=== PATIENT | female | born 1955 | race Caucasian/White ===

== ENCOUNTER 2018-06-09 15:12 | Inpatient (IN) | payer OTHER ==
[~2018-06-09] VITALS: Ht 170.2 cm; Wt 93.1 kg
[2018-06-09 15:22] VITALS: BP 132/70
[2018-06-09] MEDS ORDERED: LISINOPRIL10 MG PO (15:34)
[2018-06-09] MEDS ORDERED: SYNTHROID100 MC1 PO (15:34)
[2018-06-09] MEDS ORDERED: ZYRTEC10 M5 PO (15:35)
[2018-06-09] MEDS ORDERED: LOPRESSOR50 PO (15:35)
[2018-06-09] MEDS ORDERED: PEPCID20 MG PO (15:38)
[2018-06-09 16:18] LABS: ABSOLUTE BASOPHILS 0.1 thou/uL (0.0-0.2); ABSOLUTE EOSINOPHILS 0.2 thou/uL (0.0-0.7); ABSOLUTE LYMPHOCYTES 1.3 thou/uL (0.8-5.3); ABSOLUTE MONOCYTES 0.6 thou/uL (0.0-1.2); ABSOLUTE NEUTROPHILS 7.8 thou/uL (1.6-8.1); EOSINOPHILS 1.8 %; HEMATOCRIT 36.9 % (37.0-47.0); HEMOGLOBIN 12.9 gm/dL (12.0-15.0); LYMPHOCYTES 13.2 %; MCH 37.2 pg (26.0-34.0); MCHC 34.9 g/dL (28.0-37.0); MCV 106.6 fL (80.0-100.0); MONOCYTES 5.9 %; MPV 8.9 fl. (7.2-11.1); NUCLEATED RBCS 0 /100WBC; PLATELET COUNT* 126 thou/uL (150-400); POLYS 78.1 %; RBC 3.46 mil/uL (4.20-5.00); RDW-CV 15.9 % (10.5-14.5)
[2018-06-09 16:30] LABS: CALCIUM 8.1 mg/dL (8.5-10.1); CREATININE 1.7 mg/dL (0.6-1.3)
[2018-06-09 16:32] LABS: POTASSIUM 2.1 mmol/L (3.5-5.1)
[2018-06-09 16:39] LABS: ALBUMIN 2.4 g/dL (3.4-5.0); TOTAL BILIRUBIN 3.3 mg/dL (<0.1-1.0); TOTAL PROTEIN 7.5 g/dL (6.4-8.2); TROPONIN-I LEVEL 0.12 ng/mL (<0.06)
[2018-06-09 18:23] VITALS: BP 92/62
[2018-06-09 20:00] VITALS: BP 93/60
[2018-06-09 22:00] VITALS: BP 78/57
[2018-06-10] VITALS (12 sets, daily range): BP systolic 69–134; BP diastolic 38–72
[2018-06-10 00:53] LABS: URINE BILIRUBIN NEGATIVE (Negative); URINE BLOOD NEGATIVE (Negative); URINE CLARITY CLEAR; URINE COLOR YELLOW; URINE GLUCOSE-RANDOM NEGATIVE (Negative); URINE KETONES NEGATIVE (Negative); URINE LEUKOCYTES-REFLEX NEGATIVE (Negative); URINE NITRITE-REFLEX NEGATIVE (Negative); URINE PROTEIN NEGATIVE (Negative); URINE SPECIFIC GRAVITY <= 1.005 (1.005-1.030)
--- NOTE | 2018-06-10 05:58 | NUR ---
PATIENT PROGRESSING TOWARDS GOALS. ALERT, ANXIOUS, SR ON MONITOR ORIENT X4. DENIES PAIN. BP LOW BUT MAP <60. STILL SOUNDS COARSE IN LOWER LOBES NONE PRODUCTIVE COUGH ALL NIGHT. REPLACEING ELECYROLYTES PER PROTOCOL. HAS BEEN ABLE TO GET TO COMMODE WITH ASSIST TOLERATING WELL. HAS HAD TO INCONTINENT EPISODES. TROPONIN TRENDING DOWN. SKIN INTACT. PT GIVEN ATIVAN PER ANXIETY. BED TO LOWEST POSITION. CALL LIGHT IN PLACE. WILL CONTINUE TO MONITOR CLOSELY.
--- NOTE | 2018-06-10 10:30 | NUR ---
CM COULD NOT SEE PT.THIS AM, SHE WAS HAVE AN ECHO AT BEDSIDE. WILL SEE AT A LATER TIME.
[2018-06-10 10:58] LABS: ANION GAP 7 mmol/L (7-16); BUN 20 mg/dL (7-18); CALCIUM 7.9 mg/dL (8.5-10.1); CHLORIDE 91 mmol/L (98-107); CO2 25 mmol/L (21-32); CREATININE 1.4 mg/dL (0.6-1.3); GLUCOSE 109 mg/dL (70-99); PHOSPHORUS* 1.2 mg/dL (2.5-4.9); POTASSIUM 3.5 mmol/L (3.5-5.1); SODIUM 123 mmol/L (136-145); TROPONIN-I LEVEL <0.06 ng/mL (<0.06)
--- NOTE | 2018-06-10 15:33 | 2DMMODE ---
[place] [address] 2 D/M-MODE ECHOCARDIOGRAM Name: BECKY ALFARO Room: [address] IN [facility]#: [id number] Admission: 06/09/18 Attend Phys: Gurmeet Rojo, Discharge: Date of : 55 Date of Service: 06/10/18 1533 Report #: [id number] THIS REPORT FOR: //name// APPROVED REPORT Study performed: 06/10/2018 10:39:31 EXAM: Comprehensive 2D, Doppler, and color-flow Echocardiogram Patient Location: In-Patient Room #: [facility] Status: routine BSA: 2.04 HR: 95 bpm BP: 92/45 mmHg Rhythm: NSR Other Information Study Quality: Good Indications Dyspnea Elevated Troponin 2D Dimensions IVSd: 13.44 (7-11mm) LVOT Diam: 19.38 (18-24mm) LVDd: 40.13 mm PWd: 10.39 (7-11mm) Ascending Ao: 31.97 (22-36mm) LVDs: 24.14 (25-40mm) Aortic Root: 25.66 mm Volumes Left Atrial Volume (Systole) LA ESV Index: 33.10 mL/m2 Aortic Valve AoV Peak German.: 2.36 m/s AO Peak Gr.: 22.26 mmHg LVOT Max P.13 mmHg AO Mean Gr.: 12.51 mmHg LVOT Mean P.77 mmHg LVOT Max V: 1.74 m/s AO V2 VTI: 45.67 cm LVOT Mean V: 1.10 m/s KIM (VTI): 2.30 cm2 LVOT V1 VTI: 35.62 cm Mitral Valve E/A Ratio: 0.85 MV Decel. Time: 359.22 [place] [address] 2 D/M-MODE ECHOCARDIOGRAM Name: BECKY ALFARO Room: [address] IN ..#: [id number] Admission: 06/09/18 Attend Phys: Gurmeet Rojo, Discharge: Date of : 55 Date of Service: 06/10/18 1533 Report #: [id number] MV E Max German.: 1.42 m/s MV PHT: 104.17 ms MVA (PHT): 2.11 cm2 TDI E/Lateral E': 11.83 E/Medial E': 11.83 Medial E' German.: 0.12 m/s Lateral E' German.: 0.12 m/s Pulmonary Valve PV Peak German.: 1.19 m/s PV Peak Gr.: 5.71 mmHg Tricuspid Valve RAP Estimate: 5.00 mmHg TR Peak Gr.: 31.47 mmHg RVSP: 36.00 mmHg PA Pressure: 36.00 mmHg Left Ventricle The left ventricle is normal size. There is normal LV segmental wall motion. There is normal left ventricular wall thickness. Left ventricular systolic function is normal. The left ventricular ejection fraction is within the normal range. LVEF is 65-70%. Grade I - abnormal relaxation pattern. Right Ventricle The right ventricle is normal size. The right ventricular systolic function is normal. Atria The left atrium size is normal. The right atrium size is normal. Aortic Valve Mild aortic valve sclerosis. No aortic regurgitation is present. There is no aortic valvular stenosis. Mitral Valve There is mitral annular calcification. Trace mitral regurgitation. No evidence of mitral valve stenosis. Tricuspid Valve The tricuspid valve is normal in structure. Trace tricuspid regurgitation. Mild tricuspid regurgitation. Pulmonic Valve The pulmonary valve is normal in structure. There is [place] [address] 2 D/M-MODE ECHOCARDIOGRAM Name: NICK ALFARON Renay Room: [address]#: [id number] Admission: 06/09/18 Attend Phys: Gurmeet Rojo, Discharge: Date of : 55 Date of Service: 06/10/18 1533 Report #: [id number] valvular regurgitation. Great Vessels The aortic root is normal in size. IVC is not well visualized. Pericardium There is no pericardial effusion. <Conclusion> The left ventricle is normal size. There is normal left ventricular wall thickness. Left ventricular systolic function is normal. The left ventricular ejection fraction is within the normal range. LVEF is 65-70%. The right ventricle is normal size. The left atrium size is normal. Mild aortic valve sclerosis. No aortic regurgitation is present. There is no aortic valvular stenosis. There is mitral annular calcification. Trace mitral regurgitation. No evidence of mitral valve stenosis. The tricuspid valve is normal in structure. There is no pericardial effusion. There is normal LV segmental wall motion. <ELECTRONICALLY SIGNED> By: Jf Cali MD, FACC 06/10/18 1533 1533 1533 Jf Cali MD, FACC /INF
--- NOTE | 2018-06-10 16:08 | EKG ---
[place] [address] ELECTROCARDIOGRAM REPORT Name: BECKY ALFARO Room: [address] ADM IN .R.#: [id number] Admission: 06/09/18 Attend Phys: Gurmeet Rojo MD Discharge: Date of : 55 Report #: [id number] THIS REPORT FOR: //name// [facility] ED Test Date: 2018-06-09 Test Time: 15:26:32 Pat Name: BECKY ALFARO Department: Room: [facility] Gender: F Content Engineer: MS : 1955 Requested By: Jil Torres Order Number: [id number] MD: Jf Cali Measurements Intervals [place] Rate: 90 P: 60 WI: 165 QRS: 30 QRSD: 126 T: 132 QT: 367 QTc: 449 Interpretive Statements Sinus rhythm Nonspecific intraventricular conduction delay Probable anterior infarct, age indeterminate Baseline wander in lead(s) I,V1,V2,V6 No previous ECG available for comparison Electronically Signed On 06-10-2018 16:08:04 CDT by Jf Cali [email or web address] <ELECTRONICALLY SIGNED> By: Jf Cali MD, FAC 06/10/18 1608 1526 1526 Jf Cali MD, [facility] /EPI
--- NOTE | 2018-06-10 16:16 | EKG ---
[place] [address] ELECTROCARDIOGRAM REPORT Name: BECKY ALFARO Room: [address] IN .R.#: [id number] Admission: 06/09/18 Attend Phys: Gurmeet Rojo MD Discharge: Date of : 55 Report #: [id number] THIS REPORT FOR: //name// [facility] Test Date: 2018-06-10 Test Time: 07:48:49 Pat Name: BECKY ALFARO Department: Room: [facility] Gender: F Format Proofreader: LEO : 1955 Requested By: Gurmeet Rojo Order Number: [id number] OTTO: Jf Cali Measurements Intervals [place] Rate: 97 P: 32 IN: 144 QRS: 34 QRSD: 97 T: 71 QT: 387 QTc: 492 Interpretive Statements Sinus rhythm Low voltage, precordial leads Borderline prolonged QT interval No previous ECG available for comparison Electronically Signed On 06-10-2018 16:15:52 CDT by Jf Cali [email or web address] <ELECTRONICALLY SIGNED> By: Jf Cali MD, [facility] 06/10/18 1615 0748 Jf Cali MD, [facility] /EPI
--- NOTE | 2018-06-10 17:14 | NUR ---
NO CHANGE IN PATIENT ASSESSMENT. REFER TO [facility] ASSESSMENTS. PATIENT'S FAMILY CONCERNED THAT PATIENT IS TELLING NURSING STAFF THAT SHE DOES NOT DRINK THAT MUCH. PER THEM SHE DRINKS PURE WHISKEY WITH ICE, WHICH AMOUNTS TO ABOUT A PINT A DAY.
[2018-06-11] VITALS (7 sets, daily range): BP systolic 119–147; BP diastolic 65–76
[2018-06-11 04:34] LABS: HEMATOCRIT 34.4 % (37.0-47.0); HEMOGLOBIN 11.8 gm/dL (12.0-15.0); MCH 36.8 pg (26.0-34.0); MCHC 34.2 g/dL (28.0-37.0); MCV 107.6 fL (80.0-100.0); MPV 9.3 fl. (7.2-11.1); NUCLEATED RBCS 0 /100WBC; PLATELET COUNT* 118 thou/uL (150-400); RDW-CV 16.5 % (10.5-14.5); WBC 11.6 thou/uL (4.0-11.0)
[2018-06-11 04:55] LABS: ALBUMIN 2.3 g/dL (3.4-5.0); CALCIUM 7.7 mg/dL (8.5-10.1); CREATININE 1.2 mg/dL (0.6-1.3); MAGNESIUM 1.5 mg/dL (1.8-2.4); PHOSPHORUS* 1.7 mg/dL (2.5-4.9); POTASSIUM 3.6 mmol/L (3.5-5.1); TOTAL BILIRUBIN 5.1 mg/dL (<0.1-1.0); TOTAL PROTEIN 6.8 g/dL (6.4-8.2)
[2018-06-11 05:20] LABS: ABSOLUTE LYMPHOCYTES 0.5 thou/uL (0.8-5.3); ABSOLUTE MONOCYTES 0.8 thou/uL (0.0-1.2); ABSOLUTE NEUTROPHILS 10.3 thou/uL (1.6-8.1); ANISOCYTOSIS 1+; PLATELET ESTIMATE DECREASED; POIKILOCYTOSIS 1+
--- NOTE | 2018-06-11 06:50 | NUR ---
PATIENT DID NOT PROGRESS TOWARDS GOALS. CIWA SCORES INCREASED TO 9 D/T MODERATE HALLUCINATIONS, TREMORS, ANXIETY AND AGITATION. PT WENT IN BED 4 DIFFERENT TIMES WAS UNAWARE. GAVE A DOSE OF PO ATIVAN PT PRESISTED COUGHING AFTER. O2 DID NOT DROP BUT DOESNT SEEM LIKE PT IS ABLE TO CLEAR THROAT VERY WELL. DID NOT GIVE PO MEDICATION THIS A/M PT WAS VERY DROWSY UNABLE TO KEEP KEEP EYES OPEN FOR CONVERSATION. PT TOOK BOTH IV'S OUT LAST NIGHT AND PERSISTED TO TAKE OUT THE NEW 2 IV'S THAT WERE PLACED. PLACED A THIRD IV ON RIGHT FORARM CURRENTLY INTACT INFUSING MG+ AND NS. PT BED TO LOWEST POSITION, BED ALARM ON. CALL LIGHT IN PLACE. IS MS/TELE STATUS. WILL CONTINUE TO MONITOR.
--- NOTE | 2018-06-11 10:33 | CON ---
[facility] [address] [place] [address] CONSULTATION Name: BECKY ALFARO Room: [address] IN M.R.#: [id number] Admission: 06/09/18 Attend Phys: Gurmeet Rojo MD Discharge: Date of : 55 Report #: [id number] THIS REPORT FOR: //name// CC: [facility] physician/PCP Gurmeet Blum REQUESTING PHYSICIAN: Gurmeet Rojo M.D. REASON FOR CONSULTATION: Elevated D-dimer. DISCUSSION: The patient is a 62-year-old woman who was admitted after presenting to the Emergency Department yesterday. We do not have any old records on her at this facility. Unfortunately, she is an extremely poor historian. History was obtained for her as well as from the records, from the ED and the admitting physician who saw her yesterday. She notes she came to the Emergency Department because she was having swelling of her feet and ankles. She was having pain there as well. She initially denied shortness of breath to me. However, ED notes as well as the admitting doctor yesterday noted that she was more short of breath. She denied any chest pain or palpitations. Denies having documented history of any heart or lung problems. She notes she does periodically see Dr. Jess Blum. It is not clear how good she is having regular checkups. When she was seen in the ER, was seen by the nurse practitioner there. She did not have any blood gases done. On initial lab in the Emergency Department, her D-dimer was elevated. She was also noted to be hyponatremic, hypokalemic and had an elevation in her creatinine. Transaminases and liver function studies were also very abnormal. She had a chest x-ray done. No other imaging was done. When seen by her admitting physician, given the elevation in the D-dimer, a V/Q scan was ordered that has not yet been done. She denies any history of thromboembolic disease. Denies any history of any recent travel. Denies any injury. She currently does not work. She does have a history of tobacco abuse. She is extremely vague as to the amount that she smokes. She notes she has been "cutting down." Maybe about a half pack of cigarettes per day. Unable to quantitate the maximum she smoked in the past. She does drink alcohol on a regular basis. Again, however, she is vague as to the amount that she drinks. PAST MEDICAL HISTORY: We do have, she apparently does have a history of hypertension, hypothyroid and has had a prior appendectomy. HOME MEDICATIONS: Reportedly are lisinopril, levothyroxine, Zyrtec, metoprolol and Pepcid. It is not clear how [place] [address] CONSULTATION Name: DOMINICBECKY Room: [address] ADM IN [facility]#: [id number] Admission: 06/09/18 Attend Phys: Gurmeet Rojo MD Discharge: Date of : 55 Report #: [id number] SOCIAL HISTORY: Smoker and alcohol use as noted above. She states she is not working at this time. 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 REVIEW OF SYSTEMS: Challenging to obtain from the patient. Question the reliability of some of her answers. She is denying chest pain. Denies palpitations. Interestingly, she denied shortness of breath to me but has acknowledged that to the other healthcare professionals and she certainly does not dyspneic at the time I saw her. She denies having any wheezing until she came into the hospital. Denies any difficulty swallowing. Also negative for any recent fevers, chills or sweats. Denies any difficulty swallowing. No indigestion or heartburn. Denies any hematemesis or blood in her bowel movements as well as hemoptysis. Denies any history of TB or exposure to tuberculosis. No syncopal episodes. She denies any other periods of loss of consciousness. FAMILY HISTORY: She notes her multiple family members with heart disease. Denies any lung problems of thromboembolic disease in her family. PHYSICAL EXAMINATION: GENERAL: The patient is a mildly obese woman. She was seen in the ICU. VITAL SIGNS: She is on room air with O2 saturations running in the mid to high 90s. Respirations are mildly tachypneic, though not labored. There is some audible wheezing that is heard. HEENT: Head is normocephalic. Sclerae nonicteric. Mucous membranes are little dry. NECK: Large, supple without any definite adenopathy. Trachea is midline. No JVD is appreciated. HEART: Mildly tachycardic but regular. She has a grade 1/6 systolic murmur. No S3 is heard. LUNGS: Reveal breath sounds to be mildly diminished with a prolonged expiratory phase. She has scattered expiratory wheezes heard. Excursion is equal. No dullness to percussion. No subcutaneous emphysema is noted. ABDOMEN: Obese but soft, without appreciable hepatosplenomegaly. There is no guarding or rebound tenderness noted. EXTREMITIES: She has no clubbing. Lower extremities: She does have SCDs on. These were removed to examine her legs. She does have trace pretibial edema and a little bit more edema around her ankles. SKIN: Warm and dry. NEUROLOGICAL: She is alert, definitely oriented to self. Somewhat tangential in her replies. She is spontaneously moving all extremities. Do note overall her baseline hygiene appears to be poor. LABORATORY AND X-RAY FINDINGS: Portable chest film was done yesterday. Heart size appears normal. No infiltrates are noted. A questionable nodule seen in the right upper lobe area. We have no older [place] [address] CONSULTATION Name: BECKY ALFARO Room: [address] [place] [facility]#: [id number] Admission: 06/09/18 Attend Phys: Gurmeet Rojo MD Discharge: Date of : 55 Report #: [id number] her lab, sodium is 123, potassium 2.1 on admission and most recent one is 2.8 and bicarbonate 23. Admission creatinine was 1.7, down to 1.4 this morning and BUN is 21. Transaminases are elevated with an AST 245, ALT of 50, total bilirubin 3.3, alkaline phosphatase 197, magnesium 2.2 and albumin 2.2. Troponins on admission was 0.12, down to 0.09 this morning. TSH 9.89 and T4 1.22. Pro-BNP was 719. D-dimer elevated 11.24. No PT, PTT had been done. Alcohol level was less than. No drug screen was done. White blood cell count is 9400; hemoglobin 11.9; hematocrit 34.1; MCV 107 and platelets are 119,000. Prealbumin decreased at 8.1. UA was unremarkable. Also note since admission, she has been afebrile. Initially blood pressures were good, overall has been more hypotensive this morning. She is receiving some additional IV fluids. She is on room air with saturations in the 90s. IMPRESSION: 1. Active bronchospasm. With her smoking history, most likely has some underlying chronic obstructive pulmonary disease. Severity unknown. She is oxygenating adequately. 2. Elevated D-dimer. Significance not clear. Does have apparently multiple other medical problems. Does not appear to have any significant risk factors based on the information I am able to obtain from the patient in regards to thromboembolic disease. 3. Elevated liver function tests. Bilirubin is elevated as well as her transaminases. Question synthetic ability of the liver, do note albumin is low. Protime, INR pending. Suspect may have some underlying alcohol related liver disease. 4. Anemia, appears to have elevated MCV. Could be related to her alcohol use. 5. Hyponatremia. 6. History of hypothyroidism, no TSH is elevated. Question compliance with her thyroid replacement. 7. Lower extremity edema. Could be multifactorial. May have low oncotic pressure. Note, her albumin is low. Could also be related to liver disease. May have unrecognized sleep apnea. Also, some right heart failure. Do need to rule out deep venous thrombosis. 8. History of hypertension. Reportedly, on lisinopril at home. Now is currently hypotensive. The reason for this is not clear. RECOMMENDATIONS: 1. Agree with echo, which has been requested. 2. We will also need to get a V/Q scan. 3. Venous Dopplers of her lower extremities. 4. We will start DuoNeb every 4 hours. Next 24 hours of IV steroids. 5. Agree with fluid bolus. If she has not responded to that, we will need to start low dose Levophed. From my viewpoint, since she is oxygenating adequately, pushing additional fluids certainly reasonable. If she would have a PE, we want to have adequate filling pressures. [address] [address] CONSULTATION Name: BECKY ALFARO Room: [address] [facility] IN .R.#: [id number] Admission: 06/09/18 Attend Phys: Gurmeet Rojo MD Discharge: Date of : 55 Report #: [id number] 6. Long-term, need to make some significant lifestyle changes. Smoking and alcohol abstinence. <ELECTRONICALLY SIGNED> By: Christelle Borjas MD 06/11/18 1033 1102 [id number] Borjas MD /nt
--- NOTE | 2018-06-11 11:25 | NUR ---
PT. WITH CIWA OF 9. EITHER SLEEPING OR AWAKE WITH CONFUSION. DAUGHTER,KAITLIN AND KOBE AT BEDSIDE. CM AND DAUGHTERS WENT TO WAITING ROOM TO TALK. KAITLIN SAID HER MOM HAD BEEN EVICTED FROM HER APT.DUE TO NON PAYMENT OF RENT. THEY WERE IN THE PROCESS OF MOVING HER TO LIVE WITH KAITLIN. PT.HAD NOT FELT GOOD FOR ABOUT A WEEK OR TWO. SHE TOLD THEM SHE HAD THE FLU. ON DAY OF ADMISSION SHE WAS SWOLLEN ALL OVER-FACE,STOMACH,LEGS,FEET,ARMS. SHE HAS A HX OF DRINKING ON AND OFF THROUGH OUT THE YEARS. HAS TRIED TO QUIT SEVERAL TIMES. HAD AN ALCOHOLIC SEIZURE IN 2017. DAUGHTERS NOW THINK SHE DRINKS ALOT MORE THAN THEY THOUGHT. SHE HAS TROUBLE WITH ANXIETY AND DEPRESSION. IT HAD GOTTEN SO BAD SHE HAD NOT WANTED TO LEAVE HER APT. THEY THINK SHE IS FOLLOWED AT [facility] BUT HASN'T BEEN THERE FOR AWHILE. INFORMED THEM OF [employer]. THEY THINK SHE WOULD QUALIFY FOR MEDICAID. PT.DOES NOT HAVE A DPOA FAR THEY KNOW. CM FAXED FACE SHEET TO [employer]/[facility]. TOLD DAUGHTERS [employer] WILL NOT BE ABLE TO START APPLICATION UNTIL THEIR MOM IS ALERT AND ABLE TO TALK WITH [employer].
--- NOTE | 2018-06-11 18:27 | NUR ---
PATIENT HAS PROGRESSED WELL TOWARDS GOALS TODAY. PATIENT WAS CONFUSED AT BEGINNING OF SHIFT WITH MILD HALLUCINATIONS BUT SINCE HAS BECOME ORIENTED WITH NO HALLUCINATIONS. STILL INCONTINENT OF BOWEL AND BLADDER. EASILY REDIRECATABLE. CIWA IS A 7 CURRENTLY AND HAVE BEEN DECREASING THROUGHOUT THE DAY. PATIENT REMAINS M/S TELE STATUS. WILL MOVE IF AND WHEN A BED IS AVAILABLE. CALL LIGHT IN REACH, FALL PRECAUTIONS IN PLACE, DIRECTOR IN PLACE.
[2018-06-12 02:00] VITALS: BP 113/70
[2018-06-12 04:16] VITALS: BP 137/85
[2018-06-12 05:01] LABS: ABSOLUTE LYMPHOCYTES 0.5 thou/uL (0.8-5.3); ABSOLUTE MONOCYTES 0.7 thou/uL (0.0-1.2); BASOPHILS 0.2 %; HEMATOCRIT 35.1 % (37.0-47.0); LYMPHOCYTES 3.7 %; MCH 36.9 pg (26.0-34.0); MCHC 34.1 g/dL (28.0-37.0); MCV 108.3 fL (80.0-100.0); MONOCYTES 5.7 %; MPV 8.7 fl. (7.2-11.1); NUCLEATED RBCS 0 /100WBC; PLATELET COUNT* 124 thou/uL (150-400); POLYS 90.4 %; RBC 3.24 mil/uL (4.20-5.00); RDW-CV 17.1 % (10.5-14.5); WBC 12.2 thou/uL (4.0-11.0)
[2018-06-12 05:02] LABS: ALBUMIN 2.2 g/dL (3.4-5.0); CALCIUM 7.2 mg/dL (8.5-10.1); MAGNESIUM 1.5 mg/dL (1.8-2.4); PHOSPHORUS* 1.8 mg/dL (2.5-4.9); POTASSIUM 3.4 mmol/L (3.5-5.1); TOTAL BILIRUBIN 5.7 mg/dL (<0.1-1.0); TOTAL PROTEIN 6.9 g/dL (6.4-8.2)
--- NOTE | 2018-06-12 05:19 | NUR ---
ASSUMED CARE OF PT AT 1900 PT ALERT AND ORIENTED X 4 VSS, PT VISIBLY SOA AND WHEEZING O2 SAT MID 90'S ON ROOM AIR. PTS CIWAS 5-8 WITH DOES OF ATIVAN GIVEN AT 0011. THNPT SLEPT THE REST OF THE NIGHT. PT INCONTINENT MULTIPLE TIMES WHILE ASLEEP BUT CONTINENT WHILE AWAKE. PT ST ON THE MONITOR WILL CONTINUE PLAN OF CARE.
[2018-06-12 05:36] LABS: INR 1.6; PROTIME 16.1 Seconds (9.20-11.50)
[2018-06-12 08:00] VITALS: BP 114/54
--- NOTE | 2018-06-12 11:00 | NUR ---
SPOKE WITH PT AND DTRS IN THE ROOM. PT IS ALERT AND ORIENTED, NO LONGER HAVING HALLUCINATIONS. PT NOW MS TELE STATUS PER NURSING. PT AND DTRS HAVE NO QUESTIONS ABOUT PLAN OF CARE. CASE MGT WILL CONTINUE TO FOLLOW.
[2018-06-12 11:03] LABS: MAGNESIUM 1.8 mg/dL (1.8-2.4); PHOSPHORUS* 1.6 mg/dL (2.5-4.9); POTASSIUM 3.8 mmol/L (3.5-5.1)
[2018-06-12 12:12] VITALS: BP 136/53
--- NOTE | 2018-06-12 16:43 | NUR ---
REPORT GIVEN TO TAYLOR THACKER. ALL QUESTIONS ANSWERED. PATIENT TRANSFERED TO ROOM 312 WITH TECH BY WHEELCHAIR. ALL BELONGINGS SENT WITH PATIENT. AJ WAS TAKEN HOME WITH DAUGHTERS THIS AFTERNOON BECAUSE PATIENT WAS CAUGHT TRYING TO SMOKE AT THE BEDSIDE. CHART AND MEDICATIONS SENT WITH PATIENT WELL.
--- NOTE | 2018-06-12 17:10 | NUR ---
ASSUMED CARE OF PATIENT AT THIS TIME. REPORT RECEIVED FROM WINSTON THACKER. PATIENT SETTLED TO ROOM. PATIENT DENIES ANY PAIN. PATIENT IS ON ROOM AIR WITH SATS 94%, PATIENT DOES HAVE EXPIRATORY WHEEZES. PATIENT DENIES NAY NEEDS AT THIS TIME. CALL LIGHT WITHIN REACH. BED ALARM ON. WILL CONTINUE TO MONITOR.
[2018-06-13] VITALS: BP 120/70
[2018-06-13 04:00] VITALS: BP 124/62
[2018-06-13 07:55] VITALS: BP 118/55
[2018-06-13 09:23] LABS: MAGNESIUM 1.5 mg/dL (1.8-2.4); PHOSPHORUS* 2.1 mg/dL (2.5-4.9); POTASSIUM 4.2 mmol/L (3.5-5.1)
--- NOTE | 2018-06-13 10:59 | NUR ---
JOHAN met with pt to provide resources and referral to [facility] for ETOH abuse recovery programs. Pt dtr had stepped out of the room for now but SW discussed options and pt was not sure since she said that she recently moved with her dtr to [place] from [place]. JOHAN called pt dtr Nathalie and discussed resources available and Nathalie plans to call JOHAN back as well and possibly meet in person to continue to find treatment options to assist with further recovery for pt. SW to continue to follow.
[2018-06-13 12:45] VITALS: BP 124/68
[2018-06-13 16:20] VITALS: BP 152/70
--- NOTE | 2018-06-13 18:30 | NUR ---
PATIENT RESTING IN BED. PATIENT HAS BEEN UP IN CHAIR THIS AFTERNOON. PATIENT WORKED WITH OT/PT TODAY. PATIENT IS MORE ORIENTED TODAY WITH SOME FORGETFULNESS. PATIENT HAS CONTINUED TREMORS. PATIENT HAS [employer] APPETITE. PATIENT DENIES ANY NEEDS AT THIS TIME. CALL LIGHT WITHIN REACH. WILL CONTIUE TO MONITOR.
[2018-06-13 20:10] VITALS: BP 147/73
[2018-06-14] VITALS: BP 122/75
[2018-06-14 04:00] VITALS: BP 137/67
[2018-06-14 04:59] LABS: ALBUMIN 2.2 g/dL (3.4-5.0); MAGNESIUM 1.4 mg/dL (1.8-2.4); PHOSPHORUS* 1.6 mg/dL (2.5-4.9); POTASSIUM 4.4 mmol/L (3.5-5.1); TOTAL BILIRUBIN 6.7 mg/dL (<0.1-1.0); TOTAL PROTEIN 6.8 g/dL (6.4-8.2)
--- NOTE | 2018-06-14 05:46 | NUR ---
PT RESTED WELL , TREMORS REMAINS CIWA 4, PT INCONTINENTOF STOOL AND URINE THROUGHOUT HOURLY ROUNDS , UP TO BSC GAIT VERY UNSTEADY, DISCUSSED PLAN OF CARE PT AGREEABLE BED ALARM ON FOR SAFETY.
[2018-06-14 08:05] VITALS: BP 147/73
[2018-06-14 12:00] VITALS: BP 133/76
--- NOTE | 2018-06-14 14:17 | NUR ---
Nutrition: Pt sat up to eat lunch today. Albumin 2.2, prealbumin 7.7. Pt is assessed for LOS. Admitted with SOB on exertion. ETOH. Severely depleted visceral protein stores. Please encourage good protein intake at meal times. MVI. GOALS: good po intake >75% of meals, continue MVI use, wt remain stable. No nutrition interventions needed today. Mild risk.
[2018-06-14 15:55] VITALS: BP 140/61
--- NOTE | 2018-06-14 16:15 | NUR ---
WATER REUSE PROGRAM MANAGER SPOKE TO PATIENT AND DTR'S TO DISCUSS DISCHARGE PLANNING NEEDS. PATIENT'S DTR INFORMS THAT THE PLAN IS TO HAVE THE PATIENT [facility] TO [facility] [place] [facility]OL REHAB IF THE PATIENT WILL AGREE TO D/C. CM WILL REMAIN AVIALABLE TO ASSIST AND FOLLOW NEEDED.
--- NOTE | 2018-06-14 17:52 | NUR ---
PATIENT RESTING IN BED. FAMILY AT BEDSIDE. PATIENT DENIES ANY PAIN. PATGIENT IS UP WITH ASSISTANCE, UNSTEADY WITH WALKING. PATIENT HAS [facility]IR APPETITE. WILL BE NPO AFTER MIDNIGHT FOR ULTRASOUND IN AM. PATIENT HAS CONTINUED TREMORS. PATIENT IS ORIENTED BUT FORGETFUL. PATIENT DENIES ANY NEEDS AT THIS TIME. CALL LIGHT WITHIN REACH. WILL CONTINUE TO MONITOR.
[2018-06-14 20:00] VITALS: BP 110/63
[2018-06-15] VITALS: BP 142/84
--- NOTE | 2018-06-15 01:40 | NUR ---
ASSESSMENT: PT REMAIN ALERT AND ORIENT TIMES FOUR. SLEEPY AT THE CHANGE OF SHIFT. REQUESTED NIGHT MEDS AND ABLE TO GO TO SLEEP. PT WITH SMALL TREMORS AND SLIGHT ANXIETY. NO LORAZEPAM GIVEN. APPROXIMATELY 0100 PT REQUESTED TYLENOL FOR PAIN IN FEET. ACCORDING TO JESSICA, PT ALLERGIC TO ACETAMINOPHEN. IBUPROPHEN WAS THUS ORDERED IN STEAD. VSS, AFEBRILE. PT IN WEARING A BRIEF FOR STRESS INCONT. ABLE TO GO TO BSC. NPO AT VT FOR ABD US. SOMETIMES FORGETFUL WITH MEDICATIONS, AND PROCEDURES. PT DID NOT RECALL TAKING HER 0900 MEDICATIONS, AND WAS REQUESTING THEM FROM THIS RN. REASSURANCE WAS GIVEN. PT BACK ON HER WAY TO SLEEP. SLOW PROGRESS, WI LL CONTINUE TO MONITOR.
[2018-06-15 04:00] VITALS: BP 155/86
[2018-06-15 04:55] LABS: ALBUMIN 2.1 g/dL (3.4-5.0); CALCIUM 7.1 mg/dL (8.5-10.1); CREATININE 0.9 mg/dL (0.6-1.3); DIRECT BILIRUBIN 6.2 mg/dL (<0.1-0.3); POTASSIUM 4.3 mmol/L (3.5-5.1); TOTAL BILIRUBIN 7.4 mg/dL (<0.1-1.0); TOTAL PROTEIN 6.4 g/dL (6.4-8.2)
[2018-06-15 04:58] LABS: MAGNESIUM 1.5 mg/dL (1.8-2.4); PHOSPHORUS* 1.7 mg/dL (2.5-4.9)
[2018-06-15 06:55] LABS: % SATURATION 50 % (20-39); IRON 76 ug/dL (50-175)
[2018-06-15 08:30] VITALS: BP 117/68
[2018-06-15 16:00] VITALS: BP 101/65
--- NOTE | 2018-06-15 18:33 | NUR ---
PT ASSESSMENT CHARTED. VSS THROUGHOUT THE SHIFT. PT UP IN ROOM WITH PHYSICAL THERAPY BUT WAS STOPPED SHORT PATIENT WAS TACHYCARDIC IN THE 130'S. PT WHEEZY/DIMINISHED ON AND OFF THROUGHOUT THE DAY. CIWA 5, 3, 3 AND ONLY REQUIRED PRN ATIVAN X1 DOSE THIS MORNING. NO PAIN COMPLAINTS THROUGHOUT SHIFT. PHOSPHORUS AND MAGNESIUM REPLACED WITH A REDRAW SCHEDULED FOR 2199. LIVER BIOPSY, PARACENTESIS AND EGD SCHEDULED FOR SUNDAY.
[2018-06-15 19:45] VITALS: BP 128/59
[2018-06-15 23:26] VITALS: BP 131/60
[2018-06-16 03:54] VITALS: BP 142/61
--- NOTE | 2018-06-16 08:03 | NUR ---
RECEIVED REPORT AND ASSUMED CARE AT 1900. VSS. CARDIAC MONITORING IN PLACE. PT UP WITH ASSIST TO BSC, ON RA. ASSESSMENT COMPLETED CHARTED. PT REPORTED PAIN, PRN MEDICATION ADMIN PER ORDERS. POSITION CHANGED EVERY TWO HOURS, CIWA=3 THROUGHOUT SHIFT. HOURLY ROUNDING COMPLETED AND ALL NEEDS MET. NURSING WILL CONTINUE TO MONITOR
[2018-06-16 08:10] VITALS: BP 111/60
[2018-06-16 12:14] VITALS: BP 120/70
--- NOTE | 2018-06-16 14:52 | NUR ---
PATIENT RESTING IN BED. PATIENT WAS UP TO CHAIR THIS AM. PATIENT DENIES AY PAIN. MAGESIUM AND PHOSPHOUS REPLACED TODAY. PATIENT IS UP WITH ONE TO COMMODE AND IS UNSTEADY AND WEAK. PATIENT DENIES ANY NEEDS AT THIS TIME. CALL LIGHT WITHIN REACH.
[2018-06-16 16:00] VITALS: BP 107/66
[2018-06-16 20:05] VITALS: BP 140/58
[2018-06-17] VITALS (20 sets, daily range): BP systolic 97–133; BP diastolic 45–67
--- NOTE | 2018-06-17 06:54 | NUR ---
PT SLEPT WELL OVERNIGHT, UP WITH ASSIST TO BSC TO VOID. HAS BEEN NPO SINCE MIDNIGHT FOR EGD, PARACENTESIS AND LIVER BX POSSIBLE TO DAY. TELE ST, BRIEF RATE OF 174 SHOWING ON MONITOR BUT MAINLY 100-115 RATE. RECEIVING IBUPROFEN AND LORAZEPAM AT HS, CIWA SCORE 3 THIS SHIFT FOR SLIGHT TREMOR AND ANXIETY. JAUNDICED. WEARS BRIEFS FOR STRESS INCONTINENCE. ABLE TO USE CALL LITE AND MAKE NEEDS KNOWN. PHOS REPLACED AT HS.AM LABS DRAWN.RT TX GIVEN, OCC CONGESTED COUGH AND WHEEZES. LWRIST SL.BED ALARM ON FOR SAFETY OVERNIGHT.
--- NOTE | 2018-06-17 11:48 | NUR ---
SEWING MACHINE REPAIRER CONTACTED FREDA WITH [employer] AND LEFT A MESSAGE TO DISCUSS AND F/U ON THE REFERRAL TO COMPPLETE THE MEDICAID K[place]IE. D/C GINSENG FARMER AWAITING A RETURN CALL FROM FREDA. CM WILL REMAIN AVIALABLE TO ASSIST AND FOLLOW NEEDED.
[2018-06-17 15:11] LABS: ANA INTERPRETATION Negative (Negative)
--- NOTE | 2018-06-17 16:51 | NUR ---
PT BACK FROM PARACENTESIS. PT LYING ON RIGHT SIDE. PT GIVEN WATER. PT DENIES NEEDS
--- NOTE | 2018-06-17 17:00 | NUR ---
PT IN RECLINER MOST OF THE MORNING. REPOSITIONED FREQUENTLY WHEN IN BED. UP TO BSC WITH 1 ASSIST. PT A&OX4 BUT FORGETFUL. PARACENTESIS THIS PM. PT TOLERATED PO WELL. STACH ON MONITOR
[2018-06-17 20:12] LABS: BF RBC 12140 /mm3; TOTAL CELL COUNT 444 /mm3
[2018-06-17 21:02] LABS: BF LYMPHOCYTES 24 %; BF MONOCYTES 5 %; BF POLYS 71 %; BF TISSUE 23 /100 WBC
[2018-06-17 21:05] LABS: CLARITY SLIGHTLY HAZY; COLOR AMBER; TOTAL VOLUME 1160 ml
[2018-06-17 21:20] LABS: SOURCE PARACENTESIS
[2018-06-18] VITALS: BP 118/57
[2018-06-18 04:00] VITALS: BP 120/56
--- NOTE | 2018-06-18 06:59 | NUR ---
PT SLEPT WELL OVERNIGHT. TURNED AND REPOSITIONED Q2 HOURS AND PRN FOR SKIN CARE AND COMFORT. RECEIVING LORAZEPAM PO AT HS FOR SLEEP, AND TYLENOL FOR R SIDE SORENESS. FRIEDA BUENO TO R ABD. NITINRISEzra . TELE . [facility]. ABLE TO USE CALL LITE AND MAKE NEEDS KNOWN. BED ALARM ON FOR SAFETY.
[2018-06-18 07:06] LABS: HEPATITIS B SURFACE AG Negative (Negative)
[2018-06-18 08:00] VITALS: BP 126/69
[2018-06-18 09:40] LABS: ALBUMIN 1.6 g/dL (3.4-5.0); CALCIUM 7.8 mg/dL (8.5-10.1); CREATININE 1.2 mg/dL (0.6-1.3); DIRECT BILIRUBIN 7.7 mg/dL (<0.1-0.3); POTASSIUM 4.4 mmol/L (3.5-5.1); TOTAL BILIRUBIN 9.2 mg/dL (<0.1-1.0); TOTAL PROTEIN 5.9 g/dL (6.4-8.2)
[2018-06-18 11:58] VITALS: BP 142/65
[2018-06-18 15:59] VITALS: BP 161/70
--- NOTE | 2018-06-18 16:38 | NUR ---
PATIENT A&OX4, FORGETFUL. RA, IV LEFT WRIST SALINE LOCK. UP WITH ASSISTX1 WITH WALKER AND GAITBELT, WEAK. INCONTINENT AT TIMES. NO C/O PAIN/N/V. ANXIOUS ABOUT DIAGNOSIS, PHYSICIAN AWARE, PRN LORAZEPAM GIVEN. JAUNDICE SKIN, INCREASE BILIRUBIN. NO OTHER CONCERNS AT THIS TIME. APPROPRAITE AND COOPORATIVE WITH CARE.
[2018-06-18 19:50] VITALS: BP 144/59
[2018-06-19] VITALS (8 sets, daily range): BP systolic 110–148; BP diastolic 57–71
[2018-06-19 05:01] LABS: HEMATOCRIT 36.9 % (37.0-47.0); HEMOGLOBIN 12.5 gm/dL (12.0-15.0); MCH 36.4 pg (26.0-34.0); MCHC 33.8 g/dL (28.0-37.0); MCV 107.5 fL (80.0-100.0); MPV 9.9 fl. (7.2-11.1); RBC 3.44 mil/uL (4.20-5.00); RDW-CV 17.7 % (10.5-14.5); WBC 15.9 thou/uL (4.0-11.0)
[2018-06-19 05:59] LABS: ALBUMIN 1.5 g/dL (3.4-5.0); CALCIUM 8.2 mg/dL (8.5-10.1); CREATININE 1.1 mg/dL (0.6-1.3); TOTAL BILIRUBIN 8.7 mg/dL (<0.1-1.0); TOTAL PROTEIN 6.3 g/dL (6.4-8.2)
--- NOTE | 2018-06-19 07:32 | NUR ---
PT SLEPT WELL SINCE MIDNIGHT. HAS BEEN NPO SINCE MIDNIGHT FOR EGD TODAY. SLIV. INCONTINENT URINE OVERNIGHT, CASSIE CARE GIVEN. JAUNDICE. AM LABS DRAWN. TELE ST RHYTHM. HS SNACK BEFORE NPO STATUS. PO ABX GIVEN AT HS ORDERED. BED ALARM ON FOR SAFETY.
[2018-06-19 10:13] LABS: HIV-1/HIV-2 ANTIBODY Non Reactive (Non Reactive)
[2018-06-19 14:08] LABS: BODY FLUID PROTEIN 0.7 g/dL (())
[2018-06-19 16:06] LABS: SOURCE ABD PARACENTESIS
--- NOTE | 2018-06-19 16:07 | NUR ---
ACUTE INPATIENT REHAB CONSULT RECEIVED THIS DATE AND DR. DUMONT ASSESSED THE PATIENT. SEE DR. DUMONT'S CONSULT FOR DETAILS. PLAN TO FOLLOW PATIENT'S PROGRESS TO HELP DETERMINE IF PATIENT MAY BE A CANDIDATE FOR ACUTE INPATIENT REHAB UNIT STAY. NOTE DISCHARGE DISPOSITION IS UNKNOWN PATIENT IS TRANSIENT. ADDITIONALLY, PATIENT IS MEDICAID PENDING. THANK YOU FOR THIS REFERRAL.
--- NOTE | 2018-06-19 17:07 | NUR ---
PATIENT A&OX4, FORGETFUL. RA, IV LEFT WRIST SALINE LOCK. UP WITH ASSISTX1 TO BSC WITH WALKER AND GIATBELT. INCONTINENT AT TIMES, ENCOURAGED TO CALL OUT WHEN NEEDED RESTROOM. ASCITESE AND CIROSIS. SKIN AND EYES JAUNDICE. EGD TODAY, NO CONCERNS WITH PROCEDURE. CONSULTING REHAB FOR ADM. NO OTHER CONCERNS AT THIS TIME. APPROPRIATE AND COOPORATIVE WITH CARE.
[2018-06-20 04:27] VITALS: BP 151/68
--- NOTE | 2018-06-20 05:49 | NUR ---
PT SLEPT MOST OF SHIFT. ASSESSMENT DOCUMENTED. MEDS GIVEN PER E-MAR. IV PATENT. PT REPORTED MILD PAIN ON HER RIGHT SIDE BUT DID NOT REQUEST ANY MEDICATIONS FOR PAIN. PT INCONTINENT THROUGH NIGHT. PT STATES SHE KNOWS WHEN SHE HAS URINATED, PT EDUCATED TO CALL ON HER CALL LIGHT WHEN SHE IS WET, PT STATED UNDERSTANDING, PT REEDUCATED ON CALLING RIP MACHINE OPERATOR LIGHT WHEN WET SERVERAL TIMES THROUGH NIGHT. PT ANXIOUS AT BEGINING OF SHIFT. WILL CONTINUE WITH PLAN OF CARE.
[2018-06-20 09:30] VITALS: BP 144/64
[2018-06-20 11:33] VITALS: BP 130/67
[2018-06-20 16:00] VITALS: BP 156/70
--- NOTE | 2018-06-20 16:36 | NUR ---
PATIENT UP TO CHAIR ALL MORNING. INCONTINENT OF LARGE AMOUNTS OF URINE. PATIENTS DAUGHTER CALLING THIS AM FOR UPDATE. AWAITING REHAB CONS. [facility] THIS AFTERNOON. NO COMPLAINTS THIS SHIFT.
[2018-06-20 19:45] VITALS: BP 161/105
[2018-06-21 00:04] VITALS: BP 148/73
[2018-06-21 04:29] VITALS: BP 158/79
[2018-06-21 05:02] LABS: ALBUMIN 1.4 g/dL (3.4-5.0); CALCIUM 8.3 mg/dL (8.5-10.1); DIRECT BILIRUBIN 5.4 mg/dL (<0.1-0.3); MAGNESIUM 1.3 mg/dL (1.8-2.4); TOTAL BILIRUBIN 6.5 mg/dL (<0.1-1.0); TOTAL PROTEIN 5.8 g/dL (6.4-8.2)
--- NOTE | 2018-06-21 06:08 | NUR ---
PT SLEPT MOST OF SHIFT. ASSESSMENT DOCUMENTED. MEDS GIVEN PER E-MAR. IV PATENT. NO REPORTS OF PAIN. PT REPOSITIONED PT ALLOWED. PT INCONTINENT THROUGH NIGHT. WILL CONTINUE WITH PLAN OF CARE.
[2018-06-21 08:00] VITALS: BP 149/69
[2018-06-21 11:56] VITALS: BP 106/42
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
[2018-06-21] MEDS ORDERED: CIPRO500 MG PO (14:20)
[2018-06-21] MEDS ORDERED: LASIX 20 MG TAB20 MG PO (14:21)
[2018-06-21] MEDS ORDERED: CELEXA20 MG PO (14:21)
[2018-06-21] MEDS ORDERED: MEDROL8 MG PO (14:22)
[2018-06-21] MEDS ORDERED: SINGULAIR 10 MG10 M1 PO (14:23)
[2018-06-21] MEDS ORDERED: NICOTINE TRANSD21 M1 TRANSDERM (14:23)
[2018-06-21] MEDS ORDERED: PROTONIX40 M1 PO (14:24)
[2018-06-21] MEDS ORDERED: VITAFOL-OB+DHA1 EACH PO (14:24)
[2018-06-21] MEDS ORDERED: SPIRONOLACTONE25 M1 PO (14:25)
--- NOTE | 2018-06-21 14:42 | NUR ---
Pt to dc to inpt rehab unit today.
--- NOTE | 2018-06-21 16:44 | NUR ---
PATIENT UP TO CHAIR FOR MEALS THIS SHIFT. NO COMPLAINTS OF PAIN. MG REPLACED THIS AM PER PROTOCOL FOR LEVEL OF 1.3, MG LEVEL NOW 2.3 AFTER REPLACMENT. IV DC'D. PATIENTS DAUGHTER KAITLIN NOTIFIED THAT PATIENT WOULD BE DISCHARGING OVER TO INPATIENT REHAB. REPORT CALLED TO KIRSTIE HANKINS. PATIENT TRANSFERRED TO ROOM 322.
[2018-06-21] MEDS ORDERED: ATIVAN1 MG PO (17:06)
[2018-06-21] MEDS ORDERED: ENOXAPARIN40 MG/0.1 SUBQ (17:07)
[2018-06-21] MEDS ORDERED: IPRAT-ALBUT 0.5-3 ML INH (17:09)
--- NOTE | 2018-06-24 10:19 | CON ---
[address] [address] CONSULTATION Name: BECKY ALFARO Room: [address]R.#: [id number] Admission: 06/09/18 Attend Phys: Gurmeet Rojo MD Discharge: 06/21/18 Date of : 55 Report #: [id number] THIS REPORT FOR: //name// CC: PATRIC[facility] physician/PCP Gurmeet Rojo REASON FOR CONSULTATION: Evaluation and recommendations regarding a 62-year-old female admitted to inpatient acutely for hypokalemia, elevated D-dimer and acute kidney injury with a history of alcoholism and withdrawal seizures, hypothyroid, hypertension. She presented originally to the Emergency Department. She was believing she was fluid overloaded at that time. She did have a daughters present during her initial evaluations. It turns out that she was recently evicted from her apartment for not paying. She is currently Medicaid pending. She had altered mental status and confusion for several days after admission. Previous level of function was modified independent to independent with activities of daily living. Current level of function looks like minimum assistance of 1-2 with physical therapy, limited data on occupational therapy. She is higher level with her swallow. She is on regular diet, but there is no cognitive evaluation at this time. ALLERGIES: HYDROCODONE, ACETAMINOPHEN, OXYCODONE, PREDNISONE, SULFAMETHOXAZOLE AND TRIMETHOPRIM. LABORATORY DATA: Reviewed. PAST MEDICAL AND SURGICAL HISTORY: Hypertension, hypothyroid, appendectomy, alcoholism. SOCIAL HISTORY: No recreational drug use. Current daily tobacco smoker. Daily use of alcohol, she states 2-3 drinks of whiskey a day. REVIEW OF SYSTEMS: A 14-point review of systems is done and is negative except as mentioned in HPI, specifically no fever, chest pain, shortness of breath, abdominal pain or distention, change in bowel or change in bladder. PHYSICAL EXAMINATION: GENERAL: Alert, oriented, in no apparent distress. VITAL SIGNS: Reviewed and are stable. HEENT: Atraumatic, normocephalic. Pupils equal, round, reactive. ABDOMEN: Soft, nontender, nondistended. NEUROLOGIC: Cranial nerves 2-12 are grossly intact. No focal neuro deficits, 5/5 strength in bilateral upper and lower extremities. SKIN: Warm and dry. No rashes or lesions noted. ASSESSMENT: 1. Status post acute hospitalization for altered mental status, acute kidney injury, metabolic alterations and changes as well [place] [address] CONSULTATION Name: BECKY ALFARO Room: [address]#: [id number] Admission: 06/09/18 Attend Phys: Gurmeet Rojo MD Discharge: 06/21/18 Date of : 55 Report #: [id number] seizures. 2. Multiple medical comorbidities, history of elevated D-dimer, elevated troponin, fluid overload, and elevated liver function tests. PLAN: 1. Continue with physical and occupational therapy as well as speech and language pathology. We recommend having them do a cognitive evaluation given her age and her significant alcohol use. Cardiology will follow along with her elevated troponins. 2. She is Medicaid pending and has an unreliable discharge disposition at this time as she is homeless. To qualify for acute inpatient rehabilitation she would need to explain what residence she would likely be discharged to. <ELECTRONICALLY SIGNED> By: Celena Girard DO 06/24/18 1019 [id number] Girard DO /nt
--- NOTE | 2018-06-24 11:22 | CON ---
[address] [address] CONSULTATION Name: BECKY ALFARO Room: [address]R.#: [id number] Admission: 06/09/18 Attend Phys: Gurmeet Rojo MD Discharge: 06/21/18 Date of : 55 Report #: [id number] THIS REPORT FOR: //name// CC: [facility] physician/PCP Gurmeet Rojo HISTORY OF PRESENT ILLNESS: The patient is a pleasant 62-year-old female with past medical history significant for alcohol abuse, who was brought in by her daughters for progressive weakness and lethargy. The patient reports that she has been drinking 2-3 glasses of whiskey per day and has been doing this on and off for several years in the past. In the last year, she has been admitted 3 times for alcohol-related complaints. The patient reported over the last few weeks, she also noticed progressive increase in her fatigue and worsening distention of her abdomen. She denies any abdominal pain, nausea, vomiting, fevers, chills or weight loss. She has a past medical history of hypertension, hypothyroidism, and anxiety. PAST MEDICAL HISTORY: Hypertension and hypothyroidism. PAST SURGICAL HISTORY: The patient had appendectomy in the remote past. SOCIAL HISTORY: The patient never used recreational drugs. Smokes cigarettes every day and used about half pack per day and drinks alcohol daily, takes about 2-3 drinks of whiskey per day. FAMILY HISTORY: The patient denies family history of lung cancer. REVIEW OF SYSTEMS: Negative except for those mentioned here. PHYSICAL EXAMINATION: VITAL SIGNS: Temperature 36.4, pulse rate 122, and blood pressure 133/76, respirations 20. GENERAL: The patient is alert, awake, and oriented times 3. HEENT: Mucous membranes are moist. Sclerae are deeply icteric. SKIN: Skin is also icteric. Palmar erythema noted. Spider angiomata noted over the neck and upper chest. CARDIOVASCULAR: Rate and rhythm regular, S1, S2 present. LUNGS: Clear to auscultation bilaterally. ABDOMEN: Soft. There is distention. There appears to be fluid thrill. EXTREMITIES: Show pitting edema. NEUROLOGIC: There is no focal neurological deficit and no asterixis. LABORATORY DATA: Hemoglobin 12.0, hematocrit 35.1, WBC count 12.2, platelet count 124, MCV 108. Sodium 137, potassium 4.4, chloride 103, bicarbonate 23, BUN 18, creatinine 1, total bilirubin 6.7, AST 198, ALT 60, alkaline phosphatase 198, albumin 2.2. INR 1.6. [place] [address] CONSULTATION Name: BECKY ALFARO Room: [address]#: [id number] Admission: 06/09/18 Attend Phys: Gurmeet Rojo MD Discharge: 06/21/18 Date of : 55 Report #: [id number] ASSESSMENT AND PLAN: This is a very pleasant 62-year-old female with past medical history significant for hypertension, hypothyroidism, and history of alcohol abuse who presented with progressive weakness. On physical exam, the patient has palmar erythema, spider angiomata, and deep icterus. Also history of end-stage liver disease. This is corroborated by a relatively low platelet count and an elevated INR of 1.6. I will order abdominal ultrasound to look for nodular contour of liver and also to rule out ascites. If the patient does have ascites, interventional radiology-guided paracentesis can be performed and esophagogastroduodenoscopy will be performed on Sunday to rule out varices. I strongly recommended cessation of alcohol with the patient and her daughters. Baseline workup for chronic liver disease has been initiated. <ELECTRONICALLY SIGNED> By: Kenan Stallings MD 06/24/18 1122 [id number] Stallings MD /nt
--- NOTE | 2018-06-26 07:06 | PATH ---
[address] [address] PATHOLOGY RPT PROCEDURE Name: BECKY HENSON Room: [address] IN [facility]#: [id number] Admission: 06/09/18 Date of : 55 Discharge: 06/21/18 Report #: [id number] Path Case #: [id number] [facility] Accession Number: [id number] . 01 Material submitted: . LIVER BIOPSY . 01 Clinical history: . LFT's, NSTEMI, shortness of air, hypokalemia . (06/15/2018) Viral serology negative, JUSTIN direct negative, mitochondrial antibody 7.7 (0.0-20.0 units), smooth muscle antibody 12 (0-19 units), T-7-douetakqnes 151 (90-200 mg/dL). . (06/19/2018) AST 211, ALT 91, alk phos 231, T-bili 8.7, D-bili 7.7. . . . 02 Diagnosis: Liver biopsy: - Macrovesicular steatohepatitis, grade 2, with bridging fibrosis, stage III, negative for malignancy. See comment. . (AYUSH:ash;06/19/2018) AGA/06/20/2018 . 02 Comment: The biopsies reveal approximately 70% macrovesicular steatosis with a prominent acute inflammatory infiltrate within the parenchyma and portal regions. Bile ducts are present. No granulomas are seen. Desiree's hyaline is not conspicuous. A panel of properly controlled special stains performed on A1 and A2 show the following results: Iron - minimal parenchymal increase. Reticulin and trichrome - highlights bridging fibrosis and distortion of hepatic plates. PAS with and without diastase - no hyaline globules. . The histologic findings are compatible with alcoholic fatty liver disease. Reviewed with Dr. Naomi Berger, who agrees with the diagnosis. . (AYUSH:vjm;06/19/2018) . 02 Electronically signed: . Foster Ching MD, Pathologist NPI- [id number] . 01 Gross description: . The specimen is received in formalin, labeled "Becky Henson, [place] [address] PATHOLOGY RPT PROCEDURE Name: BECKY HENSON Room: [address] IN M.R.#: [id number] Admission: 06/09/18 Date of : 55 Discharge: 06/21/18 Report #: [id number] Path Case #: [id number] BX LFT's", are two wolf-yellow needle cores measuring 1.0 cm and 0.8 cm in length and up to 0.1 cm in diameter. The specimen is entirely submitted in A1-A2. (SWS; 06/18/2018) SHS/SHS . 02 Pathologist provided ICD-10: K76.0, K74.0 . 02 CPT . 570451, 380946, 636478, 083821, [id number], 440164, 178375 Specimen Comment: A courtesy copy of this report has been sent to Specimen Comment: [phone], . Specimen Comment: Report sent to / DR MILIAN Performed at: [address] [facility], [place], [place] [id number] MD Melo Jones MD Phone: [phone] Performed at: [address] [facility] [address] [place] [id number] MD Foster Ching MD Phone: [phone]
== END 2018-06-21 16:46 | DRG 433 ==
LOC: M.ERS 15:12 → M.TBA-ER 17:01 → M.ICU 17:01 → M.3W 06-12 17:28
PROVIDERS: Family Medicine; Internal Medicine Gastroenterology; Nurse Practitioner Family; Radiology Diagnostic Radiology
DX: K70.30 Alcoholic cirrhosis of liver without ascites (principal); N17.9 Acute kidney failure, unspecified; E87.1 Hypo-osmolality and hyponatremia; J44.1 Chronic obstructive pulmonary disease with (acute) exacerbation; F10.239 Alcohol dependence with withdrawal, unspecified; K76.6 Portal hypertension; I85.00 Esophageal varices without bleeding; E03.9 Hypothyroidism, unspecified; E87.6 Hypokalemia; F17.210 Nicotine dependence, cigarettes, uncomplicated; E83.42 Hypomagnesemia; E87.70 Fluid overload, unspecified; I95.9 Hypotension, unspecified; D64.9 Anemia, unspecified; I12.9 Hypertensive chronic kidney disease with stage 1 through stage 4 chronic kidney disease, or unspecified chronic kidney disease; E83.39 Other disorders of phosphorus metabolism; R91.1 Solitary pulmonary nodule; R74.0 Nonspecific elevation of levels of transaminase and lactic acid dehydrogenase [LDH]; F41.1 Generalized anxiety disorder; K31.89 Other diseases of stomach and duodenum; N18.9 Chronic kidney disease, unspecified; Z90.49 Acquired absence of other specified parts of digestive tract; Z88.6 Allergy status to analgesic agent; Z91.14 Patient's other noncompliance with medication regimen; Z88.2 Allergy status to sulfonamides; Z88.8 Allergy status to other drugs, medicaments and biological substances; Z82.49 Family history of ischemic heart disease and other diseases of the circulatory system; Z79.899 Other long term (current) drug therapy

== ENCOUNTER 2018-06-21 14:34 | Inpatient (IN) | payer OTHER ==
[~2018-06-21] VITALS: Ht 170.2 cm; Wt 91.4 kg
--- NOTE | ~2018-06-21 | PLAN ---
[address] [address] REHAB UNIT PLAN OF CARE Name: BECKY ALFARO Room: [address] IN [facility]#: [id number] Admission: 06/21/18 Attend Phys: Celena Girard DO Discharge: Date of : 55 Report #: [id number] THIS REPORT FOR: //name// CC: [facility] physician/PCP Celena Girard HISTORY OF PRESENT ILLNESS: This is a 62-year-old female admitted to inpatient rehabilitation to facilitate safe discharge home, status post acute hospitalization with altered mental status, acute kidney injury, metabolic alterations, medical complexity and generalized debility. Previous level of function was independent with activities of daily living. Current level of function is plbewub-[id number] assistance of one depending on therapy, activity and time of day. She also has needs in speech and language pathology for memory, expression, social interaction. MEDICAL PROGNOSIS: Good. REHABILITATION PROGNOSIS: Good. Estimated length of stay is 7-10 days with discharge disposition to the home setting where she has supportive family and an accessible house. Physical therapy will see the patient 60-90 minutes per day, 5 days per week, working on upper and lower body strength, balance, coordination, navigation. Occupational therapy will see the patient 60-90 minutes per day, 5 days per week, working on upper and lower body strength, balance, coordination, navigation, bathing, dressing, and toileting. Speech language pathology will see the patient 30-90 minutes per day, 5 days per week, working on memory, cognition, expression, social interaction and executive thinking. This is an overall plan of care, may change from time to time, we will team weekly and make changes to plan of care as needed. By: 1115 [id number] Girard DO /ange
--- NOTE | ~2018-06-21 | D ---
[address] [address] DISCHARGE SUMMARY Name: BECKY ALFARO Room: [address] IN .R.#: [id number] Admission: 06/21/18 Attend Phys: Celena Girard DO Discharge: 07/12/18 Date of : 55 Report #: [id number] THIS REPORT FOR: //name// CC: [facility] physician/PCP Celena Girard DATE OF SERVICE: 07/12/2018 DISCHARGE DIAGNOSES: 1. Encephalopathy. 2. Seizure. 3. Nontraumatic brain injury. DISCHARGE DISPOSITION: To the home setting with home health nursing given her Medicaid pending status. She was recommended to follow with primary care physician. She was recommended to cease alcohol intake. Maintain regular diet, fall precautions and supervision. Notifications for physician were given. DISCHARGE PHYSICAL EXAMINATION: GENERAL: Alert, oriented, in no apparent distress. VITAL SIGNS: Reviewed and are stable. HEENT: Head atraumatic, normocephalic. Pupils equal, round, reactive. ABDOMEN: Soft, nontender, nondistended. NEUROLOGIC: Cranial nerves 2 through 12 are grossly intact. No focal neuro deficits. By: 1321 [id number] Girard DO /nt
[~2018-06-21 14:34] MED LIST: CELEXA20 MG PO; CIPRO500 MG PO; LASIX 20 MG TAB20 MG PO; LISINOPRIL10 MG PO; LOPRESSOR50 PO; MEDROL8 MG PO; NICOTINE TRANSD21 M1 TRANSDERM; PEPCID20 MG PO; PROTONIX40 M1 PO; SINGULAIR 10 MG10 M1 PO; SPIRONOLACTONE25 M1 PO; SYNTHROID100 MC1 PO; VITAFOL-OB+DHA1 EACH PO; ZYRTEC10 M5 PO
[2018-06-21] MEDS ORDERED: ATIVAN1 MG PO (17:06)
[2018-06-21] MEDS ORDERED: ENOXAPARIN40 MG/0.1 SUBQ (17:07)
[2018-06-21] MEDS ORDERED: IPRAT-ALBUT 0.5-3 ML INH (17:09)
[2018-06-21 17:29] VITALS: BP 108/46
--- NOTE | 2018-06-21 18:12 | NUR ---
PT ADMITTED TO 322 AND IS ALERT AND ORIENTATED. PT ORIENTATED TO ROOM AND CONTROLS. HERE WHEN PT ARRIVED AND CLARIFIED ORDERS AND WILL SEE PT TOMORROW. PT WAS INCONTINENT WHEN ARRIVED TO ROOM AND WAS ASSISTED WITH CHANGING INTO GOWN AND PUTTING ON BREIF. PT IS PLESANT. HOURLY ROUNDING INITIATED AND PT IS UP TO RECLINER NOW WITH FEET ELEVATED.
[2018-06-21 20:25] VITALS: BP 114/51
--- NOTE | 2018-06-21 21:30 | NUR ---
REHAB ADMISSION TOOL COMPLETED EARLIER. DAUGHTERS WERE IN ROOM WITH PATIENT AT THE TIME. A/O X 4. INCONTINENT OF URINE. DOESN'T HAVE AWARENESS OF BEING WET. CASSIE CARE GIVEN. TRANSFERRED FROM BED TO BEDSIDE COMMODE WITH GAITBELT, STAND, PIVOT. NEEDED ASSIST WITH GETTING LEGS OUT OF BED BUT WAS ABLE TO LIFT LEGS BACK INTO BED. HAS 2-3+ BILATERAL LOWER EXTREMITY EDEMA. TOOK MEDICATIONS WHOLE WITH WATER.
[2018-06-22 04:53] LABS: HEMOGLOBIN 12.4 gm/dL (12.0-15.0); MCH 36.2 pg (26.0-34.0); MCHC 33.6 g/dL (28.0-37.0); MPV 10.2 fl. (7.2-11.1); RBC 3.42 mil/uL (4.20-5.00); RDW-CV 17.8 % (10.5-14.5); WBC 11.3 thou/uL (4.0-11.0)
[2018-06-22 05:14] LABS: CALCIUM 8.4 mg/dL (8.5-10.1); MAGNESIUM 1.7 mg/dL (1.8-2.4); POTASSIUM 3.8 mmol/L (3.5-5.1)
--- NOTE | 2018-06-22 05:48 | NUR ---
RESTED QUIETLY. GAVE TYLENOL AT 2102 FOR COMPLAINT OF SORENESS AT PUCTURE SITE RIGHT LOWER SITE WHERE TAP WAS DONE. NO FURTHER COMPLAINT OF PAIN. INCONTINENT X ONE DURING THE NIGHT. CASSIE CARE GIVEN. HOURLY ROUNDING IN PROGRESS.
[2018-06-22 08:00] VITALS: BP 111/56
--- NOTE | 2018-06-22 17:53 | NUR ---
SHIFT NOTE - PT PARTICIPATED WITH ALL THERAPIES TODAY. PT ABLE TO WALK WITH GAIT BELT AND WALKER AT LEAST 75 FEET TODAY. NO COMPLAINTS OF PAIN. WILL CONTINUE TO MONITOR.
[2018-06-22 19:40] VITALS: BP 120/50
--- NOTE | 2018-06-22 19:40 | NUR ---
RESTING QUIETLY IN BED. INCONTINENT OF URINE. CASSIE CARE GIVEN. PATIENT REQUIRES A LOT OF ENCOURAGEMENT TO TRY TO HELP WITH CARES.
--- NOTE | 2018-06-23 05:20 | NUR ---
GAVE PRN TYLENOL AT 2009 FOR COMPLAINT OF SORENESS AT TAP SITE WITH RELIEF. TOOK MEDICATIONS WHOLE A FEW AT A TIME WITH WATER. INCONTINENT X ONE DURING THE NIGHT. CASSIE CARE GIVEN. RESTED QUIETLY REMAINDER OF THE NIGHT. HOURLY ROUNDING IN PROGRESS.
[2018-06-23 08:00] VITALS: BP 115/58
--- NOTE | 2018-06-23 17:26 | NUR ---
SHIFT NOTE - PT INC OF URINE X 2 THIS SHIFT. PT ABLE TO WALK TO DINING CLEMENTS FOR LUNCH AND DINNER THIS SHIFT WITH WALKER AND GAIT BELT. WILL CONTINUE TO MONITOR.
[2018-06-23 19:52] VITALS: BP 145/66; BP 145/67
--- NOTE | 2018-06-24 01:15 | NUR ---
ASSUMED CARE @ 1937-06/23-SUNDAY.AWAKE IN BED W/ HOB UP.BED ALARM PUT ON @ 1937.AWAKENED TO TURN.SEE POSITION CHANGE CHARTING BY VOLUNTEER COORDINATOR.ON HOURLY ROUNDS. VOLUNTEER COORDINATOR DOING ODD HOUR ROUNDS.
[2018-06-24 03:59] LABS: HEMATOCRIT 36.3 % (37.0-47.0); HEMOGLOBIN 12.2 gm/dL (12.0-15.0); MCH 36.4 pg (26.0-34.0); MCHC 33.7 g/dL (28.0-37.0); MCV 107.9 fL (80.0-100.0); MPV 9.7 fl. (7.2-11.1); RBC 3.36 mil/uL (4.20-5.00); RDW-CV 17.9 % (10.5-14.5); WBC 13.8 thou/uL (4.0-11.0)
[2018-06-24 04:16] LABS: ALBUMIN 1.3 g/dL (3.4-5.0); MAGNESIUM 1.4 mg/dL (1.8-2.4); TOTAL BILIRUBIN 4.4 mg/dL (<0.1-1.0); TOTAL PROTEIN 5.5 g/dL (6.4-8.2)
--- NOTE | 2018-06-24 05:21 | NUR ---
SLEPT GOOD & SLEEPING SINCE 2139.REFUSED HS SNACK.INC URINE X4.URINE ACCIDENT X1 ONLY.CASSIE PADS CHANGED 2X.PULL UPS W/ CASSIE PADS BOTH CHANGED 2X.CASSIE CARE GIVEN AFTER EACH URINE INCONTINENT EPISODE.BUTTOCKS & CASSIE-ANAL AREAS-RED. MOISTURE BARRIER CREAM APPLIED PRN.
[2018-06-24 08:24] VITALS: BP 108/60
[2018-06-24 09:00] VITALS: BP 108/60
--- NOTE | 2018-06-24 11:49 | NUR ---
Nutrition: Pt admitted to Rehab [facility], THO. Pt ate 30% of BKFST this morning. 2gm Na diet. SOB, ETOH, liver disease. albumin 1.3, prealb 7.2. Severely depleted visceral protein stores - RD will order Beneprotein packets t.i.d. for added nutrition and protein intake. SPOKE WITH RN, PLEASE ENCOURAGE GOOD PO INTAKE AT MEALTIMES. ENSURE SUPPLEMENTS AVAILABLE IF PT CONTINUES EATING <50% OF MEALS. Mild risk. Will follow weekly.
--- NOTE | 2018-06-24 18:09 | NUR ---
ASSUMED CARE AT 0730 PATIENT ALERT/ORIENTED, NO COMPLAINTS OF PAIN THIS SHIFT, ATIVAN GIVEN X1 FOR ANXIETY, UP WITH MOD ASSIST OF ONE AND WALKER/GAIT BELT, PARTICIPATED IN ALL THERAPIES TODAY, REFUSED TO GO TO DINING ROOM FOR MEALS, BED/CHAIR ALARMS IN PLACE, CALL LIGHT IN REACH, HOURLY ROUNDING COMPLETED.
[2018-06-24 20:45] VITALS: BP 128/60
--- NOTE | 2018-06-25 01:09 | NUR ---
ASSUMED CARE @ 1919-06/24-SUNDAY.APPEARS SLEEPING IN BED W/ HOB UP.BED ALARM PUT ON @ 1919.HEELS OFF BED ALREADY @ 1919.FOOT OF BED ELEVATED DUE TO EDEMA LE'S.AWAKENED @ 2039-FOR RESP.TX.PRN ATIVAN 1 MG ORAL GIVEN @ 2204 PER PT'S REQUEST.ON HOURLY ROUNDS.SEE POSITION CHANGE CHARTING Q EVEN 2 HOURS.PULL UPS OFF @ HS.
[2018-06-25 04:56] LABS: CALCIUM 8.1 mg/dL (8.5-10.1); CREATININE 0.9 mg/dL (0.6-1.3)
--- NOTE | 2018-06-25 05:42 | NUR ---
SLEPT EARLY @ 1920 & SLEEPING GOOD ALL NIGHT.AWAKENED ONLY TO TURN & TO CHECK IF INC.URINE.GOES RIGHT BACK TO SLEEP AFTER TURNING.TOOK ALL PEACHES & 50% ICED TEA HS SNACKS.INC URINE X4.URINE ACCIDENT X1 ONLY.CASSIE CARE AFTER EACH EPISODE INC.URINE.MOISTURE BARRIER CREAM APPLIED TO RED BUTTOCKS & CASSIE ANAL AREAS PRN.
[2018-06-25 09:30] VITALS: BP 127/59
--- NOTE | 2018-06-25 16:51 | NUR ---
PT IS ALERT AND ORIENTED X 4. DENIED PAIN. PT INDICATED HAVING NAUSEA IN AM. DURING SHOWER WITH THERAPY COUGHED UP SPUTUM AND HAD SMALL AMOUNT OF EMISIS. PT USES WHEELCHAIR FOR PRIMARY LOCOMOTION. PARTICIPATED WITH THERAPIES DURING SHIFT. UP WITH SBA X 1 WITH WALKER AND GAIT BELT. IV PLACED IN RAC FOR MAGNESIUM TO BE INFUSED PER ORDER. WEARS ADULT PULL-UPS AND IS INCONTINENT OF URINE. VS STABLE. HOURLY ROUNDS MAINTAINED. WILL USE CALL LIGHT FOR ASSISTANCE. CALL LIGHT WITHIN REACH. NURSING TO CONTINUE TO MONITOR.
--- NOTE | 2018-06-25 17:06 | NUR ---
SW met with pt to complete initial assessment, introduce self, and SW role. Pt known to this CM from inpt hospital stay on acute. Pt lives with her dtr. Pt has a rollator but has a goal of not needing a RW at dc. Pt is Medicaid pending. SW to continue to follow to assist with safe dc planning.
[2018-06-25 20:00] VITALS: BP 143/57
--- NOTE | 2018-06-26 05:09 | NUR ---
ASSUMED PT CARE AT 1930. PT ALREADY IN BED AT SHIFT CHANGE, ALERT AND ORIENTED, POLITE AND COOPERATIVE WITH CARES. HEELS ELEVATED WITH PILLOWS AND FOOT OF BED ELEVATED TO IMPROVE EDEMA TO BLE. ATIVAN X1 PER PT REQUEST. WET BRIEF REMOVED AND PERICARE GIVEN. PT INCONTINENT OF URINE X4 OVERNIGHT. NO STOOL THIS SHIFT. PERICARE AFTER EACH INCONTINENT EPISODE WITH BARRIER CREAM APPLIED TO RED CASSIE AREA. TURNS Q2, PT ABLE TO ASSIST WITH TURNS FOR CHUX CHANGE. BED ALARM ON FOR SAFETY. USES CALL LIGHT APPROPRIATELY. CALL LIGHT AND FREQUENTLY USED ITEMS WITHIN REACH. HOURLY ROUNDING IN PROGRESS, WILL CONTINUE TO MONITOR.
[2018-06-26 08:04] VITALS: BP 122/53
--- NOTE | 2018-06-26 14:36 | NUR ---
JOHAN and Dr Girard met with pt to review team conference summary with plan for reteam; team to reassess pt length of stay during team conference next Tuesday 07/03. Pt in agreement with plan. SW to continue to follow to assist with safe dc planning.
--- NOTE | 2018-06-26 15:11 | NUR ---
AM ASSESSMENT AND VITAL SIGNS COMPLETED DOCUMENTED. PT HAS BEEN COOPERATIVE, WORKED WITH ALL THERAPIES. PT ENCOURAGED TO MAKE AN EFFORT TO CHANGE HER BRIEF, SHE HAS BEEN DEPENDENT ON STAFF UP TO THIS POINT. ANTIFUNGAL CREAM APPLIED TO GLUTEAL CREASE. PT ASSISTED INTO BED WITH FEET ELEVATED FOR THE AFTERNOON. FALL PRECAUTIONS AND HOURLY ROUNDING CONTINUE.
[2018-06-26 20:00] VITALS: BP 140/53
--- NOTE | 2018-06-27 05:11 | NUR ---
ASSUMED PT CARE AT 1930. PT ALREADY IN BED AT SHIFT CHANGE, VISITING WITH DAUGHTER AND GRANDDAUGHTERS. PT ALERT AND ORIENTED X4, POLITE AND COOPERATIVE WITH CARES. HEELS ELEVATED WITH PILLOWS AND FOOT OF BED ELEVATED TO IMPROVED EDEMA TO BLE. ATIVAN ONCE THIS SHIFT. WET BRIEF REMOVED AT HS AND PERICARE GIVEN. PT INCONTINENT OF URINE SEVERAL TIMES OVERNIGHT. PERICARE WITH EACH INCONTINENT EPISODE, ANTIFUNGAL CREAM APPLIED TO GLUTEAL CREASE. NO STOOL THIS SHIFT. TURNS Q2, PT ABLE TO ASSIST WITH TURNS. BED ALARM ON FOR SAFETY. USES CALL LIGHT APPROPRIATELY. CALL LIGHT AND FREQUENTLY USED ITEMS WITHIN REACH. HOURLY ROUNDING IN PROGRESS, WILL CONTINUE TO MONITOR.
[2018-06-27 08:00] VITALS: BP 121/52
[2018-06-27 08:51] VITALS: BP 121/52
[2018-06-27 19:43] VITALS: BP 139/63
[2018-06-28 04:21] LABS: HEMATOCRIT 33.3 % (37.0-47.0); HEMOGLOBIN 11.3 gm/dL (12.0-15.0); MCH 36.9 pg (26.0-34.0); MCHC 33.8 g/dL (28.0-37.0); MCV 109.1 fL (80.0-100.0); MPV 10.3 fl. (7.2-11.1); RBC 3.05 mil/uL (4.20-5.00); RDW-CV 17.3 % (10.5-14.5); WBC 13.7 thou/uL (4.0-11.0)
[2018-06-28 04:31] LABS: INR 1.4; PROTIME 14.3 Seconds (9.20-11.50)
[2018-06-28 04:42] LABS: ALBUMIN 1.3 g/dL (3.4-5.0); CREATININE 0.9 mg/dL (0.6-1.3); MAGNESIUM 1.5 mg/dL (1.8-2.4); POTASSIUM 4.1 mmol/L (3.5-5.1); TOTAL BILIRUBIN 3.6 mg/dL (<0.1-1.0); TOTAL PROTEIN 5.6 g/dL (6.4-8.2)
--- NOTE | 2018-06-28 05:49 | NUR ---
ASSUMED PT CARE AT 1930. PT IN BED AT SHIFT CHANGE. PT UP TO SIDE OF BED SO BED COULD BE ZEROED FOR WEIGHT. PT UP WITH MIN ASSIST, GAIT BELT AND WALKER. PT ALERT AND ORIENTED X4, POLITE AND COOPERATIVE WITH CARES. HEELS ELEVATED WITH PILLOWS AND FOOT OF BED ELEVATED TO IMPROVE EDEMA TO BLE. ATIVAN TWICE THIS SHIFT. WET BRIEF REMOVED AT HS AND PERICARE GIVEN. PT INCONTINENT OF URINE SEVERAL TIMES OVERNIGHT. PERICARE WITH EACH INCONTINENT EPISODE, ANTIFUNGAL CREAM APPLIED TO GLUTEAL CREASE. NO STOOL THIS SHIFT. TURNS Q2, PT ABLE TO ASSIST WITH TURNS. BED ALARM ON FOR SAFETY. USES CALL LIGHT APPROPRIATLEY. CALL LIGHT AND FREQUENTLY USED ITEMS WITHIN REACH. HOURLY ROUNDING IN PROGRESS, WILL CONTINUE TO MONITOR.
[2018-06-28 07:52] VITALS: BP 129/59
--- NOTE | 2018-06-28 20:30 | NUR ---
SALINE LOCK PLACED IN LEFT ARM. IV MAGNESIUM HUNG PER ORDERS. DENIES DISCOMFORT. IN BED RESTING. TOOK MEDICATIONS WITH WATER. CUT BIG PILL IN HALF PER PATIENT'S REQUEST.
[2018-06-28 20:48] VITALS: BP 134/54
--- NOTE | 2018-06-29 05:12 | NUR ---
RESTED QUIETLY. NO COMPLAINTS VOICED. CASSIE CARE GIVEN AFTER URINARY INCONTINENCE. ASSISTED WITH REPOSITIONING. MAGNESIUM REPLACED. HOURLY ROUNDING IN PROGRESS.
[2018-06-29 07:57] VITALS: BP 133/55
--- NOTE | 2018-06-29 17:48 | NUR ---
ASSUMED CARE AT 0730 PATIENT ALERT/ORIENTED, NO COMPLAINTS OF PAIN THIS SHIFT, BUT DOES TAKE ATIVAN FOR ANXIETY NEEDED, ONE DOSE GIVEN THIS SHIFT, UP WITH ASSIST OF ONE AND WALKER, TO DINING ROOM FOR DINNER, PARTICIPATED IN ALL THERAPIES TODAY, HOURLY ROUNDING COMPLETED, BED/CHAIR ALARMS IN PLACE, CALL LIGHT IN REACH.
[2018-06-29 20:00] VITALS: BP 133/53
--- NOTE | 2018-06-30 06:30 | NUR ---
PATIENT HAS SLEPT WELL THROUGHOUT THE NIGHT. MEDICATIONS GIVEN ORDERED AND CHARTED. ASSESSMENT CHARTED. PATIENT HAS BEEN TURNED EVERY 2HRS AND NEEDED. PATIENT HAS HAD ONE INCONTINENT BLADDER EPISODE IN BRIEF. PATIENT HAS NOT BEEN UP DURING THE NIGHT. PATIENT INSTRUCTED TO USE CALL LIGHT WHEN NEEDING ASSISTANCE. FALL PRECAUTIONS IN PLACE AND HOURLY ROUNDS MADE. WILL CONTINUE WITH PLAN OF CARE AND NURSING TO MONITOR.
[2018-06-30 08:07] VITALS: BP 109/55
--- NOTE | 2018-06-30 17:52 | NUR ---
ASSUMED CARE AT 0730 PATIENT ALERT/ORIENTED, NO COMPLAINTS OF PAIN THIS SHIFT, UP WITH MOD ASSIST OF ONE AND WALKER/GAIT BELT, TO DINING ROOM FOR MEALS, BED/CHAIR ALARMS IN PLACE, ATIVAN GIVEN X2 THIS SHIFT REQUESTED. INCONTINENT OF BLADDER, NO ACCIDENTS. HOURLY ROUNDING COMPLETED CALL LIGHT IN REACH
[2018-06-30 20:05] VITALS: BP 124/69
[2018-06-30 20:37] VITALS: BP 124/69
--- NOTE | 2018-07-01 05:24 | NUR ---
UP WITH 1 ASSIST, GAIT BELT AND WALKER. ALERT AND ORIENTED X4. DENIES NEED FOR PAIN OR NAUSEA MEDICATION. WEARS BRIEFS. INCONTINENT OF URINE X1 IN BRIEF. CALL LIGHT WITHIN REACH. PROGRESSING TOWARD DISCHARGE GOAL.
[2018-07-01 08:30] VITALS: BP 125/56
--- NOTE | 2018-07-01 15:08 | NUR ---
ASSUMED CARE AT 0730. ALERT ORIENTED PLEASANT COOPERATIVE. HX OF AMS CONFUSION WEAKNESS. USES CALL LIGHT APPROPRIATELY FOR ASSIST. TRANSFERS WITH SBA G BELT WALKER TO W/C FOR BREAKFAST. FEEDS SELF AND TAKES MEDS WITHOUT DIFFICULTY. DENIES PAIN OR CONCERNS. EDEMA PRESENT BLES ELEVATE MUCH POSSIBLE WHEN NOT IN THERAPIES. VOIDED THIS A.M. IN TOILET WASNT INCONTINENT. FUNGAL CREAM TO BUTTOCKS. NEEDED SOME ASSIST WITH HYGEINE AFTER BM. ABLE TO DO CLOTHING ADJUSTMENTS. MG WAS STILL LOW GAVE IV MG THIS AFTERNOON. DR. DANIELLE HERE THIS AFTERNOON ORDERS WRITTEN RE MED CHANGES. SPOKE WITH PT. AT BEDSIDE. INCONTINENT THIS AFTERNOON BEFORE GETTING TO TOILET URINE. PARTICIPATING WITH THERAPIES.
[2018-07-01 20:00] VITALS: BP 123/51
--- NOTE | 2018-07-02 05:47 | NUR ---
ASSUMED CARES AT 1920. ALERT AND ORIENTED, PLEASANT. DENIED ANY PAIN. BLE EDEMA. LEGS UP ONTO PILLOW IN BED. PT MOSTLY INCONTINENT OF URINE WHILE SLEEPING. DID CALL ONCE TO GET UP TO TOILET TO VOID. TAKES PILLS WHOLE WITHOUT ISSUE. TURNED EVERY 2 HRS. FUNGAL CREAM APPLIED TO REDNESS BETWEEN BUTTOCKS. CALL LIGHT IN REACH AND BED ALARM ON.
[2018-07-02 08:00] VITALS: BP 134/58
--- NOTE | 2018-07-02 13:42 | NUR ---
JOHAN called pt dtr Nathalie in preparation for team conference tomorrow and Nathalie did not answer so JOHAN left a detailed message requesting call back with any questions or comments. SW to continue to follow to assist with safe dc planning.
--- NOTE | 2018-07-02 14:26 | NUR ---
ASSUMED CARE AT 0730. ALERT ORIENTED PLEASANT COOPERATIVE. HX OF ALTERED MENTAL STATUS CONFUSION METABOLIC ALTERATIONS. TRANSFERS WITH SBA G BELT WALKER AMBULATES WITH WALKER TO BR TO VOID CAN BE INCONTINENT AT TIMES. WEARS PULLUPS FUNGAL CREAM TO BUTTOCKS AFTER CLEANSING. PARTICIPATING IN THERAPIES. STATED BACK PAIN AFTER LUNCH MEDICATED WITH TYLENOL 2 TABS. USES CALL LIGHT APPROPRIATELY FOR ASSIST. FEEDS SELF TAKES MEDS WITHOUT DIFFICULTY.
[2018-07-02 20:42] VITALS: BP 105/46
--- NOTE | 2018-07-03 05:24 | NUR ---
ASSUMED CARE AT 1920. ALERT AND ORIENTED. PLEASANT BUT OCCASIONAL CONFUSION ESPECIALLY WHEN AWAKEN IN MIDDLE OF NIGHT BUT EASILY REDIRECTED. DENIED ANY NEED FOR PAIN MEDS. ATIVAN GIVEN PER REQUEST. BLE EDEMA. LEGS UP ONTO PILLOWS IN BED. FUNGAL CREAM APPLIED TO REDNESS TO BUTTOCKS. INCONTINENT OF URINE. NURSING DOES CARES. MIN ASSIST WITH GAIT BELT AND WALKER. UNSTEADY GAIT. DOES OCCASIONALLY GET UP TO BATHROOM WELL. TURN EVERY 2 HRS. CALL LIGHT IN REACH AND BED ALARM ON.
[2018-07-03 08:00] VITALS: BP 130/58
--- NOTE | 2018-07-03 09:28 | NUR ---
AM ASSESSMENT AND VITAL SIGNS COMPLETED DOCUMENTED. PT ASSISTED OUT OF BED TO RECLINER FOR BREAKFAST, MOVES VERY SLOWLY BUT IS ABLE TO GET UP WITH ASSISTANCE. FLUID RESTRICTION REINFORCED AND PT VOICES UNDERSTANDING. FALL PRECAUTIONS AND HOURLY ROUNDING CONTINUE.
--- NOTE | 2018-07-03 14:16 | NUR ---
JOHAN and Dr Girard met with pt to review team conference summary with pt and plan to reteam next week to reassess pt length of stay. Pt in agreement with plan. SW to continue to follow to assist with safe dc planning.
[2018-07-03 15:26] LABS: ABSOLUTE BASOPHILS 0.1 thou/uL (0.0-0.2); ABSOLUTE EOSINOPHILS 0.4 thou/uL (0.0-0.7); ABSOLUTE LYMPHOCYTES 1.4 thou/uL (0.8-5.3); ABSOLUTE MONOCYTES 0.6 thou/uL (0.0-1.2); ABSOLUTE NEUTROPHILS 7.6 thou/uL (1.6-8.1); BASOPHILS 0.7 %; EOSINOPHILS 3.7 %; HEMATOCRIT 33.4 % (37.0-47.0); HEMOGLOBIN 11.2 gm/dL (12.0-15.0); LYMPHOCYTES 14.2 %; MCH 37.2 pg (26.0-34.0); MCHC 33.5 g/dL (28.0-37.0); MCV 111.2 fL (80.0-100.0); MONOCYTES 5.5 %; MPV 9.7 fl. (7.2-11.1); NUCLEATED RBCS 0 /100WBC; PLATELET COUNT* 176 thou/uL (150-400); POLYS 75.9 %; RDW-CV 16.9 % (10.5-14.5); WBC 10.1 thou/uL (4.0-11.0)
[2018-07-03 15:41] LABS: ALBUMIN 1.5 g/dL (3.4-5.0); CALCIUM 8.1 mg/dL (8.5-10.1); POTASSIUM 4.6 mmol/L (3.5-5.1); TOTAL BILIRUBIN 2.9 mg/dL (<0.1-1.0); TOTAL PROTEIN 6.4 g/dL (6.4-8.2)
[2018-07-03 15:57] LABS: ANISOCYTOSIS 1+; TARGET CELLS 2+
[2018-07-03 20:05] VITALS: BP 146/50
--- NOTE | 2018-07-04 05:14 | NUR ---
ASSUMED CARES AT 1920. ALERT AND ORIENTED. PLEASANT. DENIED ANY PAIN. EDUCATED PT ON THE NEED TO REMOVE PULLUPS AT NIGHT TO HELP WITH REDNESS TO BOTTOM. FUNGAL CREAM APPLIED. BLE EDEMA IMPROVED. LEGS UP ONTO PILLOW. PT INCONTINENT OF URINE. NURSING ASSISTED WITH CARES. TURNED THROUGHOUT THE NIGHT. CALL LIGHT IN REACH AND BED ALARM ON.
[2018-07-04 08:18] VITALS: BP 130/58
--- NOTE | 2018-07-04 16:22 | NUR ---
AM ASSESSMENT AND VITAL SIGNS COMPLETED DOCUMENTED. PT COMPLETED ALL THERAPY SESSIONS SCHEDULED. PRN TYLENOL GIVEN FOR C/O BACK AND SIDE PAIN. PRN LORAZEPAM GIVEN FOR CHRONIC ANXIETY. PT CONTINUES TO BE INCONTINENT OF URINE AND IS UNABLE TO DO VERY MUCH OF THE CASSIE CARE OR BRIEF CHANGE. PT HAS POOR ENDURANCE AND IS VERY WEAK. FALL PRECAUTIONS AND HOURLY ROUNDING CONTINUE.
[2018-07-04 20:01] VITALS: BP 120/55
[2018-07-04 20:40] VITALS: BP 124/42
--- NOTE | 2018-07-05 05:05 | NUR ---
ASSUMED PT CARE AT 1930. PT ALERT AND ORIENTED, POLITE AND COOPERATIVE WITH CARES. DENIES PAIN. ATIVAN PER PT REQUEST AT HS. PT INCONTINENT OF URINE, STAFF PERFORMED CARES. FUNGAL CREAM APPLIED. REDNESS TO CASSIE AREA IMPROVED. BLE EDEMA ALSO IMPROVED. LEGS ELEVATED ON PILLOWS. PT TURNED Q2 THROUGHOUT NIGHT. CALL LIGHT AND FREQUENTLY USED ITEMS WITHIN REACH. HOURLY ROUNDING IN PROGRESS, WILL CONTINUE TO MONITOR.
[2018-07-05 07:50] VITALS: BP 123/53
--- NOTE | 2018-07-05 16:45 | NUR ---
ALERT AND ORIENTED X4. UP WITH ASSIST X1 WITH WALKER AND GAIT BELT. PATIENT HAS ATTENDED THERAPIES THROUGHOUT SHIFT. ATTENDED MEALS IN THE DINING ROOM. PAIN BEING MANAGED WITH PO MEDICATION. DENIES NAUSEA. VSS ON ROOM AIR. HOURLY ROUNDS HAVE BEEN MAINTAINED THROUGHOUT SHIFT. CALL LIGHT IS WITHIN REACH. NURSING WILL CONTINUE TO MONITOR.
[2018-07-05 20:05] VITALS: BP 112/44
--- NOTE | 2018-07-06 05:01 | NUR ---
ASSUMED PT CARE AT 1930. PT ALERT AND ORIENTED, POLITE AND COOPERATIVE WITH CARES. DENIES PAIN. PRN ATIVAN ONCE THIS SHIFT. PT INCONTINENT OF URINE, STAFF PERFORMED CARES. FUNGAL CREAM APPLIED. REDNESS TO CASSIE AREA IMPROVED. BLE EDEMA IMPROVED. LEGS ELEVATED ON PILLOWS AND FOOT OF BED ELEVATED. PT TURNED Q2 THROUGHOUT NIGHT. CALL LIGHT AND FREQUENTLY USED ITEMS WITHIN REACH. HOURLY ROUNDING IN PROGRESS, WILL CONTINUE TO MONITOR.
[2018-07-06 05:17] LABS: CREATININE 0.9 mg/dL (0.6-1.3); MAGNESIUM 1.3 mg/dL (1.8-2.4); POTASSIUM 4.1 mmol/L (3.5-5.1)
[2018-07-06 07:30] VITALS: BP 125/54
--- NOTE | 2018-07-06 13:49 | NUR ---
ASSUMED CARE AT 0730. ALERT ORIENTED PLEASANT COOPERATIVE. HX OF AMS AND WEAKNESS WITH METABOLIC ALTERATIONS. PT. TRANSFERS WITH SBA G BELT WALKER FEEDS SELF MEDICATED WITH TYLENOL FOR COMPLAINTS OF BACK PAIN WITH SOME RELIEF STATED. PARTICIPATED IN THERAPIES. SITTING UP IN RECLINER WITH BLES ELEVATED FOR EDEMA CONTROL. PT. HAS A RASH ON TOPS OF HER FEET. USES CALL LIGHT APPROPRIATELY FOR ASSISTANCE. WEARS PULLUPS FOR INCONTINENCE URINE AT TIMES. FUNGAL CREAM TO BUTTOCKS REDNESS. TAKES MEDS WITH WATER WITHOUT DIFFICULTY, REQUESTED ANTANXIETY MED X 1. RESTING IN BED AFTER THERAPIES COMPLETED.
[2018-07-06 19:21] VITALS: BP 132/45
--- NOTE | 2018-07-07 05:06 | NUR ---
ASSUMED PT CARE AT 1930. PT ALREADY IN BED, VISITING WITH DAUGHTER. PT TAKES PILLS WHOLE WITH WATER WITHOUT DIFFICULTY. PT INCONTINENT OF URINE, STAFF PERFORMED CARES. FUNGAL CREAM APPLIED TO GLUTEAL CREASE. REDNESS MUCH IMPROVED. PT HAS RASH ON TOPS OF HER FEET, UNCHANGED FROM BEGINNING OF SHIFT. BLE EDEMA IMPROVED, LEGS ELEVATED ON PILLOWS AND FOOT OF BED ELEVATED. PT TURNED Q2 THROUGHOUT NIGHT. PRN TYLENOL WITH EVENING MEDS. PRN ATIVAN AT HS AND WITH AM MEDS. CALL LIGHT AND FREQUENTLY USED ITEMS WITHIN REACH. HOURLY ROUNDING IN PROGRESS, WILL CONTINUE TO MONITOR.
[2018-07-07 07:57] VITALS: BP 129/51
--- NOTE | 2018-07-07 16:15 | NUR ---
ASSUMED CARE AT 0730. ALERT ORIENTED PLEASANT COOPERATIVE. HX OF METABOLIC ALTERATIONS AMS WEAKNESS. PT. VERY SLEEPY THIS A.M. 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 WAS INCONTINENT LARGE AMT. URINE AND SMALL AMT. OF BM ON LINEN TRANSFERS MORE DIFFICULT SIT TO STAND WHEN GETTING UP FROM W/C. CUES. DID SPONGE BATH AT SINK WITH SET UP. TO DR FOR LUNCH MEAL PROPELLED SELF BACK TO ROOM. STATED SHE GAGGED ON ONE OF HER MEDS WHICH MADE HER FEEL SLIGHT NAUSEA AFTERWARD. EDEMA BLES 3+ RASH STILL ON TOP OF FEET BUT CHEESE COOK. ELEVATED FEET WHEN IN RECLINER AFTER LUNCH. DID REQUEST ATIVAN THIS AFTERNOON. USING CALL LIGHT APPROPRIATELY FOR ASSIST.
[2018-07-07 20:00] VITALS: BP 130/78
[2018-07-08 05:07] LABS: CREATININE 0.8 mg/dL (0.6-1.3); MAGNESIUM 1.5 mg/dL (1.8-2.4); POTASSIUM 3.4 mmol/L (3.5-5.1)
--- NOTE | 2018-07-08 07:35 | NUR ---
ASSUMED CARES AT 1920. ALERT AND ORIENTED. PLEASANT. DENIED ANY PAIN. MIN ASSIST WITH GAIT BELT AND WALKER. UP TO BATHROOM. DOES OWN CARES. DID HAVE URINARY INCONTINENCE X 2 WELL. RN ASSISTED WITH CARES. SLEPT OFF AND ON. CALL LIGHT IN REACH AND BED ALARM ON.
[2018-07-08 08:31] VITALS: BP 124/60
--- NOTE | 2018-07-08 18:22 | NUR ---
PT UP WITH SBA USING GAIT BELT AND WALKER, STEADY GAIT. NO C/O TODAY. PT ABLE TO MAKE NEEDS KNOWN, CALL LIGHT IN REACH.
[2018-07-08 20:00] VITALS: BP 107/61
--- NOTE | 2018-07-09 05:06 | NUR ---
ASSUMED PT CARE AT 1930. PT ALERT AND ORIENTED X4, POLITE AND COOPERATIVE WITH CARES. DENIES PAIN. UP TO BATHROOM TO VOID AT BEGINNING OF SHIFT WITH MIN ASSIST, GAIT BELT AND WALKER. PRN ATIVAN AT HS PER PT REQUEST. INCONTINENCE X1, NURSING PERFORMED ALL CARES. NO STOOL THIS SHIFT. BLE ELEVATED ON PILLOWS AND FOOT OF BED RAISED. RASH TO TOPS OF FEET UNCHANGED. PT SLEPT WELL OVERNIGHT. CALL LIGHT AND FREQUENTLY USED ITEMS WITHIN REACH.
[2018-07-09 08:01] VITALS: BP 128/57
--- NOTE | 2018-07-09 15:37 | NUR ---
SW called and spoke with pt dtr Nathalie in preparation for team conference tomorrow. Nathalie did not express any questions or concerns at this time just curiousity for dc date to be able to prepare for pt return to pt dtr's home at dc. Pt dtr expressed interest in family training prior to dc as well. SW to continue to follow to assist with safe dc planning.
--- NOTE | 2018-07-09 17:24 | NUR ---
PT IS ALERT AND ORIENTED X 4. PT UP WITH SBA X 1 WITH WALKER AND GAIT BELT. DURING AMBULATION IN ROOM WITH TECH, PT RIGHT LEG BUCKLED AND PT DRIFTED TO THE RIGHT. NO INJURY NOTED. PT DENIES NAUSEA. ADMINISTERED TYLENOL FOR RIGHT ANKLE PAIN. SYED HARDY OBTAINED AND APPLIED FOR LOWER EXTREMITY EDEMA. PT PARTICIPATED IN THERAPY DURING SHIFT. HOURLY ROUNDS MAINTAINED. CALL LIGHT WITHIN REACH. NURSING TO CONTINUE TO MONITOR.
[2018-07-09 20:00] VITALS: BP 106/42
--- NOTE | 2018-07-10 05:04 | NUR ---
ASSUMED PT CARE AT 1930. PT ALERT AND ORIENTED X4, POLITE AND COOPERATIVE WITH CARES. PT UP TO VOID WITH MIN ASSIST, GAIT BELT AND WALKER. PRN ATIVAN AT HS PER PT REQUEST. PT SLEPT WELL OVERNIGHT. INCONTINENCE X1, NURSING PERFORMED ALL CARES. NO STOOL THIS SHIFT. BLE ELEVATED ON PILLOWS AND FOOT OF BED RAISED FOR BLE EDEMA. RASH TO TOPS OF FEET UNCHANGED. CALL LIGHT AND FREQUENTLY USED ITEMS WITHIN REACH. HOURLY ROUNDING IN PROGRESS, WILL CONTINUE TO MONITOR.
[2018-07-10 08:00] VITALS: BP 125/46
--- NOTE | 2018-07-10 14:48 | NUR ---
JOHAN and Dr Girard met with pt to review team conference summary with pt and plan for pt to dc home with dtr (who works from home) on Thursday 07/12. Possible HH RN to follow if JOHAN can arrange with any agency who will agree to accept pt Medicaid pending. JOHAN mentioned family training with pt dtr as well. Pt in agreement with plan. JOHAN called and spoke with pt dtr Nathalie and reviewed plan as well as scheduled family training for tomorrow, 07/11 at 9 am. JOHAN wrote on schedule board and discussed with PT and Ke Arguello. Pt has a rollator. SW to continue to follow to assist with safe dc planning.
--- NOTE | 2018-07-10 18:39 | NUR ---
ASSUMED CARE AT 0730 PATIENT ALERT/ORIENTED, TYLENOL GIVEN X1 FOR RIGHT ANKLE PAIN THIS SHIFT, UP WITH ASSIST OF ONE AND WALKER/GAIT BELT, PARTICIPATED IN ALL THERAPIES TODAY, TO DINING ROOM FOR MEALS, BED/CHAIR ALARMS IN PLACE, CALL LIGHT IN REACH, HOURLY ROUNDING COMPLETED.
[2018-07-10 20:07] VITALS: BP 143/59
--- NOTE | 2018-07-11 01:34 | NUR ---
ASSUMED CARE @ 1904-07/10-SUN.AWAKE IN BED W/ HOB UP ON HER SMART PHONE.BED ALARM PUT ON @ 1904.HEELS OFF BED ALREADY @ 1904.SBA FOR ALL TRANSFERS & TOILETING.WEARS PULL UPS.PRN ATIVAN 0.5 MG ORAL GIVEN @ 2047-PER PT'S REQUEST. ANTI FUNGAL CREAM APPLIED TO RED CASSIE ANAL AREAS @ 2039 AFTER VOIDING.THIGH HIGH TEDS OFF @ 2039.TURNS SELF @ NIGHT.ON HOURLY ROUNDS.
[2018-07-11 04:41] LABS: CALCIUM 8.1 mg/dL (8.5-10.1); CREATININE 0.9 mg/dL (0.6-1.3); MAGNESIUM 1.4 mg/dL (1.8-2.4); POTASSIUM 4.4 mmol/L (3.5-5.1)
--- NOTE | 2018-07-11 05:39 | NUR ---
SLEEPING SINCE 2200 & SLEPT GOOD ALL NIGHT.BRP W/ SBA X2.INC.URINE X2.TOOK ALL [employer] ONE PACKAGE W/ ICED TEA HS SNACKS.FOR FAMILY TRAINING TODAY-07/11-.FOR DISCHARGE SUNDAY-07/12.
[2018-07-11 06:42] VITALS: BP 143/59
[2018-07-11] MEDS ORDERED: MAGOX 400400 MG PO (07:00)
[2018-07-11] MEDS ORDERED: CELEXA20 MG PO (07:10)
[2018-07-11 08:00] VITALS: BP 116/46
--- NOTE | 2018-07-11 10:45 | NUR ---
D/C PROMOTIONS MANAGER SPOKE TO ABEL WITH [facility] TO INFORM OF THE HH REFERRAL, AND TO DISCUSS [facility]'S ABILITY TO ACCEPT THE PATIENT AT D/C. ABEL INFORMS THAT SHE WILL DISCUSS THE PATIENT'S SITUATION WITH [facility]S TEAM AND RETURN CALL TO DISCUSS ABILITY TO ACCEPT THE PATIENT BRIANNA. ABEL ALSO INFORMS THAT IF [facility] IS ABLE TO ACCEPT THE PATIENT SHE WILL COME TO THE HOSPITAL TO MEET WITH THE PATIENT TO DISUCSS HER FINANCIAL SITUATION AND FILL OUT BRIANNA PAPERWORK. D/C PROMOTIONS MANAGER FAXED [facility] PATIENT'S FACESHEET AND H&P. CM WILL REMAIN AVAILABLE TO ASSIST AND FOLLOW NEEDED.
--- NOTE | 2018-07-11 13:52 | NUR ---
JOHAN discussed [facility] case options with Derick from [facility] and Derick discussed with agency and met with pt. Derick spoke with SW afterwards and approved pt for HH follow up services under [facility] for pt. Pt understands that if pt is intoxicated at any point when they go to see pt, then they will terminate services. Services to begin on Sunday. SW provided referral info and final orders and med list to Derick with [facility]. Pt dtr participated in family training today. SW to continue to follow to assist with finalizing safe dc plan for pt for tomorrow, Thursday 07/12.
[2018-07-11 13:58] VITALS: BP 143/59
--- NOTE | 2018-07-11 16:49 | NUR ---
ASSUMED CARE AT 0730 PATIENT ALERT/ORIENTED, UP WITH ASSIST OF ONE AND WALKER, PARTICIPATED IN ALL THERAPIES TODAY, TO DINING ROOM FOR MEALS, HOURLY ROUNDING COMPLETED, BED/CHAIR ALARMS IN PLACE, CALL LIGHT IN REACH. FAMILY TRAINING TODAY WITH DAUGHTER, TYLENOL GIVEN X 1 FOR PAIN TO RIGHT ANKLE WITH GOOD RELIEF. TO BE DISCHARGED TOMORROW
[2018-07-11 19:23] VITALS: BP 115/49
[2018-07-12] MEDS ORDERED: THERAGRAN-M PR1 EAC1 PO
--- NOTE | 2018-07-12 01:04 | NUR ---
ASSUMED CARE @ 1914-07/11-SUNDAY.AWAKE IN BED WATCHING TV.BED ALARM PUT ON @ 1914.HEELS OFF ALREADY @ THIS TIME.FOOT OF BED UP DUE TO EDEMA-+2 PITTING THIGHS,LEGS,FEET & ANKLES.HS DOSE METOPROLOL HELD.BP-115/49.ANTI FUNGAL CREAM APPLIED TO RED CASSIE ANAL AREAS @ 2044.THIGH HIGH TEDS OFF @ 2044.PRN ATIVAN ORAL GIVEN @ 2043-PER PT'S REQUEST.ORAL FLUIDS RESTRICTED.WEARS PULL UPS. ON HOURLY ROUNDS.MG LEVEL LOW-1.4 DRAWN 07/11 @ 0500.PATIENT ALREADY ON MAG OXIDE 400 MG DAILY.PER ELECTROLYTE PROTOCOL-800 MG MG OXIDE GIVEN ORAL @ 2112.
[2018-07-12 03:30] VITALS: BP 123/56
[2018-07-12 05:00] VITALS: BP 143/59
--- NOTE | 2018-07-12 05:14 | NUR ---
SLEEPING SINCE 2113 & SLEPT GOOD ALL NIGHT.UP FOR BRP @ 0315.BRP W/ ASSIST X2 DURING NIGHT.INC URINE X1 ONLY.URINE ACCIDENT X1 ONLY.TOOK ONLY ICED TEA HS SNACK.TALKS IN HER SLEEP.TEMP @ 1923-99.1 ORAL.TEMP RE-CHECKED @ 0330- 98.7 ORAL.REQUESTED ALSO TO CHECK BP @ 0330-123/56-82.2ND DOSE MAGNESIUM OXIDE TO GIVE @ 0600 & HAVE MAGNESIUM LEVEL RECHECK LATER THIS AM.FOR DISCHARGE TODAY-07/1267-[id number] AROUND 1900-AFTER DAUGHTER GETS OFF FROM WORK TODAY.
[2018-07-12 07:39] VITALS: BP 107/47
[2018-07-12 09:06] VITALS: BP 143/59
[2018-07-12 09:45] VITALS: BP 117/47
[2018-07-12 10:13] VITALS: BP 117/47
[2018-07-12] MEDS ORDERED: SPIRONOLACTONE50 MG PO (11:32)
--- NOTE | 2018-07-12 13:01 | NUR ---
ASSUMED CARE AT 0730. ALERT ORIENTED PLEASANT COOPERATIVE. HX OF AMS AND METABOLIC ALTERATIONS WEAKNESS. TRANSFERS WITH SBA G BELT AND WALKER AND AMBULATES TO RECLINER FOR BREAKFAST FEEDS SELF AND TAKES MEDS WITHOUT DIFFICULTY. APPETITE FAIRLY GOOD AT BREAKFAST. USES CALL LIGHT APPROPRIATELY FOR ASSISTANCE. REQUESTED A PRN ATIVAN THIS A.M. PARTICIPATING IN THERAPIES THROUGHOUT THE A.M. HAD INCONTINENCE SOILING CLOTHES AFTER SHOWER REQUIRING CLOTHING CHANGE PER O.T. BLES HAVE EDEMA 2+ ELEVATED WHEN IN RECLINER AND NOT IN THERAPIES.
--- NOTE | 2018-07-17 13:57 | H ---
[address] [address] HISTORY AND PHYSICAL Name: BECKY ALFARO Room: [address] IN [facility]#: [id number] Admission: 06/21/18 Attend Phys: Celena Girard, DO Discharge: 07/12/18 Date of : 55 Report #: [id number] THIS REPORT FOR: //name// CC: PATRICIA physician/PCP Celena Girard DATE OF SERVICE: 06/21/2018 IGC: 2.1 HISTORY OF PRESENT ILLNESS: This is a 62 year old female patient is admitted to inpatient rehabilitation to facilitate safe discharge home, status post acute hospitalization for hopokalemia, elevated d-dimer, acute kidney injury recent alcohol withdrawl seizures. Altered mental status is directly related to alcohol withdraw and seizures thus sustaining a non-traumatic TBI. 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 No significant changes since the preadmission screening. Previous level of function was modified independent to independent with activities of daily living. Current level of function is minimum to moderate assistance of 1-2 depending on therapy, activity and time of day. Estimated length of stay is 7-10 days depending on therapy, activity and time of day. PAST MEDICAL HISTORY: Unchanged from previous consultation. PAST SURGICAL HISTORY: Unchanged from previous unchanged from previous consultation. MEDICATIONS: Have been reviewed and reconciled by myself and are available in the MAR. SOCIAL HISTORY: No tobacco, alcohol or illicit drug use. FAMILY HISTORY: Heart disease. REVIEW OF SYSTEMS: A 14-point review of systems is done and is negative except as mentioned in the HPI, specifically no fever, chest pain, shortness of breath, abdominal pain or distention. PHYSICAL EXAMINATION: GENERAL: Alert, oriented, no apparent distress. VITAL SIGNS: Reviewed and are stable. HEENT: Atraumatic, normocephalic. Pupils equal, round, reactive. ABDOMEN: Soft, nontender, nondistended. NEUROLOGIC: Cranial nerves 2 through 12 are grossly intact with [place] [address] HISTORY AND PHYSICAL Name: BECKY ALFARO Room: [address] [place] .R.#: [id number] Admission: 06/21/18 Attend Phys: Celena Girard DO Discharge: 07/12/18 Date of : 55 Report #: [id number] ABDOMEN: Soft, nontender, nondistended. MUSCULOSKELETAL: No clubbing, cyanosis or edema. ASSESSMENT: 1. Altered Mental status 2. Acute kidney injury 3. Metabolic Alterations 4. Debility PLAN: 1. Admission to inpatient rehabilitation to facilitate safe discharge home. 2. PT, OT, speech, language, case management, nursing and HIMS to make evaluations and recommendations. 3. We will team her weekly and plan of care is pending. <ELECTRONICALLY SIGNED> By: Celena Girard DO 07/17/18 1357 [id number] Girard DO /ange
== END 2018-07-12 19:37 | disposition home health service (06) | DRG 433 ==
LOC: M.REH 14:34 → M.TBA-ER 17:13 → M.REH 17:13
PROVIDERS: Family Medicine; Internal Medicine; ADMIT Physical Medicine & Rehabilitation
DX: K70.30 Alcoholic cirrhosis of liver without ascites (principal); J44.1 Chronic obstructive pulmonary disease with (acute) exacerbation; N17.9 Acute kidney failure, unspecified; I85.10 Secondary esophageal varices without bleeding; K76.6 Portal hypertension; E24.9 Cushing's syndrome, unspecified; E87.1 Hypo-osmolality and hyponatremia; F10.188 Alcohol abuse with other alcohol-induced disorder; R41.82 Altered mental status, unspecified; E88.89 Other specified metabolic disorders; R53.81 Other malaise; N18.3 Chronic kidney disease, stage 3 (moderate); I12.9 Hypertensive chronic kidney disease with stage 1 through stage 4 chronic kidney disease, or unspecified chronic kidney disease; Y90.9 Presence of alcohol in blood, level not specified; E87.6 Hypokalemia; E83.42 Hypomagnesemia; F41.1 Generalized anxiety disorder; E03.9 Hypothyroidism, unspecified; R26.9 Unspecified abnormalities of gait and mobility; R60.0 Localized edema; R07.9 Chest pain, unspecified; R79.89 Other specified abnormal findings of blood chemistry; T51.0X1A Toxic effect of ethanol, accidental (unintentional), initial encounter; Z88.0 Allergy status to penicillin; Z88.8 Allergy status to other drugs, medicaments and biological substances; Z88.2 Allergy status to sulfonamides; Z88.6 Allergy status to analgesic agent

== ENCOUNTER → 2018-10-14 | Outpatient (CLI) | payer MEDICAID ==
[~2018-10-14] MED LIST changes: +ATIVAN1 MG PO; +ENOXAPARIN40 MG/0.1 SUBQ; +IPRAT-ALBUT 0.5-3 ML INH; +MAGOX 400400 MG PO; +SPIRONOLACTONE50 MG PO; +THERAGRAN-M PR1 EAC1 PO
== END ==
LOC: M.ULTRA 09:29
DX: K74.60 Unspecified cirrhosis of liver (principal); R18.8 Other ascites